=== PATIENT | female | born 2000 | race Caucasian/White ===

== ENCOUNTER 2021-04-30 22:32 | Emergency (ER) | payer OTHER, SELFPAY ==
[2021-04-30 22:36] VITALS: BP 135/70; PULSE 78; RESP 18; TEMP 36.3; O2SAT 100
--- NOTE | 2021-04-30 23:15 | ED.URI ---
HPI - URI/Sore Throat General Chief Complaint: Upper Respiratory Infection Stated Complaint: Exposed to COVID ,[place] Time Seen by Provider: 04/30/21 22:55 Source: patient Mode of arrival: ambulatory Limitations: no limitations History of Present Illness HPI Narrative: Patient is a 21 year old female who presents complaining of sore throat x 1-2 days. Patient is requesting Covid testing as she reports positive exposure last week. Patient has a history of Type I Diabetes and a total pancreatectomy. She denies fever, cough, shortness of breath or other complaints at this time. MD elicited complaint: sore throat Related Data Allergies Allergy/AdvReac Type Severity Reaction Status Date / Time No Known Allergies Allergy Verified 04/30/21 23:13 Review of Systems Review of Systems: Narrative: CONSTITUTIONAL: Denies fever, chills, or sweats. EYES: Denies visual changes, redness, or discharge. ENT: Denies rhinorrhea, congestion, reports sore throat CARDIOVASCULAR: Denies chest pain, palpitations, or edema. RESPIRATORY: Denies cough or dyspnea. GASTROINTESTINAL: Denies abdominal pain, nausea, vomiting, or diarrhea. GENITOURINARY: Denies dysuria or hematuria. SKIN: Denies rash or itching. MUSCULOSKELETAL: Denies back pain, joint pain, or myalgia. NEUROLOGIC: Denies headache, numbness, dizziness, or weakness. PSYCHIATRIC: Denies anxiety or depression. [facility] Past Medical History Medical History Diabetes type I Insulin pump in place Surgical History Surgical History History of pancreatectomy Social History Social History (Updated 04/30/21 @ 23:20 by LAKEISHA Malone) Smoking status: Never smoker Alcohol intake: never Substance use: never Exam Narrative: Exam Narrative: GENERAL: Well-appearing, well-nourished, and in no acute distress. HEAD: Normocephalic, atraumatic. EYES: EOMI. No redness or drainage. Conjunctiva are normal. ENT: Mucous membranes pink and moist. Throat with mild erythema, no edema or exudate. Uvula midline. NECK: AROM. Supple. No lymphadenopathy. CHEST: No respiratory distress. HEART: Regular rate and rhythm. EXTREMITIES: Normal range of motion. No edema. SKIN: Warm, dry, no rash. NEURO: No focal deficits. Alert and oriented x3. Gait steady. PSYCH: Normal affect. No signs of depression or anxiety. Course Vital Signs Vital signs: Vital Signs Temperature 36.3 C L 04/30/21 22:36 Pulse Rate 78 04/30/21 22:36 Respiratory Rate 18 04/30/21 22:36 Blood Pressure 135/70 04/30/21 22:36 Pulse Oximetry 100 04/30/21 22:36 Temperature 36.3 C L 04/30/21 22:36 Pulse Rate 78 04/30/21 22:36 Respiratory Rate 18 04/30/21 22:36 Blood Pressure 135/70 04/30/21 22:36 Pulse Oximetry 100 04/30/21 22:36 Reviewed-patient is informed that they may have pre-hypertension or hypertension based on a blood pressure reading. I recommend the patient call the primary care provider listed on their discharge instructions or a physician of their choice this week to arrange follow-up for further evaluation of possible pre-hypertension or hypertension. MDM - URI/Sore Throat MDM Narrative Medical decision making narrative: Covid testing performed at this time. Patient is aware of quarantine until results are received. Patient instructed on staying well-hydrated, use of Tylenol or ibuprofen for pain or fever. Patient is aware of red flags and when to return to the emergency department. Patient is stable for discharge to home with outpatient follow-up as needed. Differential Diagnosis Differential diagnosis: Likely upper respiratory infection, sinusitis, viral infection, bronchitis, influenza, pharyngitis and other (Covid) Critical Care Time Critical Care Time Critical Care Time: No Discharge Plan Discharge Clinical Impression: Encounter for screening laboratory testing f
[2021-05-01 19:11] LABS: SARS-CoV-2 RNA PCR Negative
== END 2021-04-30 23:43 | disposition home or self-care (01) ==
LOC: ANHED 23:24
PROVIDERS: Emergency Provider Nurse Practitioner; PCP Family Medicine
DX: J06.9 Acute upper respiratory infection, unspecified (principal); Z20.822 Contact with and (suspected) exposure to COVID-19; E10.9 Type 1 diabetes mellitus without complications; Z79.4 Long term (current) use of insulin; Z96.41 Presence of insulin pump (external) (internal); Z90.410 Acquired total absence of pancreas; R03.0 Elevated blood-pressure reading, without diagnosis of hypertension
CPT/HCPCS: 99283; C9803; U0003; U0005

== ENCOUNTER 2021-11-15 16:17 | Emergency (ER) | payer OTHER, SELFPAY ==
[2021-11-15 16:19] VITALS: BP 139/78; PULSE 98; RESP 16; TEMP 36.6; O2SAT 100
[2021-11-15] MEDS: CARBAMIDE PEROXIDE 6.5% OT SOLN 15 ML BTL 5 DROP EACH EAR (18:23)
--- NOTE | 2021-11-15 20:04 | ED.GENADULT ---
HPI - General Adult General Chief complaint: Ear Stated complaint: ears feel body maker Seen by Provider: 11/15/21 17:14 Source: patient Mode of arrival: ambulatory Limitations: no limitations History of Present Illness HPI narrative: Patient presents with chief complaint of cerumen impaction and discomfort to bilateral ears but left worse than right that has been going on for multiple weeks but has worsened over the past few days. Patient reports that she went to urgent care and they instructed her to come to the emergency department if they do not have the tools to clean her ears. Patient denies any drainage or bleeding from the ears. Patient denies any trauma to the ears. Patient denies any fever, chills or any other emergent symptoms. Related Data Allergies Allergy/AdvReac Type Severity Reaction Status Date / Time No Known Allergies Allergy Verified 04/30/21 23:13 Review of Systems Review of Systems: CONSTITUTIONAL: Denies fever, chills, or sweats. EYES: Denies visual changes, redness, or discharge. ENT: Reports otalgia denies rhinorrhea, congestion, sore throat CARDIOVASCULAR: Denies chest pain, palpitations, or edema. RESPIRATORY: Denies cough or dyspnea. GASTROINTESTINAL: Denies abdominal pain, nausea, vomiting, or diarrhea. GENITOURINARY: Denies dysuria or hematuria. SKIN: Denies rash or itching. MUSCULOSKELETAL: Denies back pain, joint pain, or myalgia. NEUROLOGIC: Denies headache, numbness, dizziness, or weakness. PSYCHIATRIC: Denies anxiety or depression. PMFSH Past Medical History Medical History Diabetes type I Insulin pump in place Surgical History Surgical History History of pancreatectomy Social History Social History (Updated 04/30/21 @ 23:20 by Michelle Mathews, LAKEISHA) Smoking status: Never smoker Alcohol intake: never Substance use: never Exam Narrative: GENERAL: Well-appearing, well-nourished, and in no acute distress. HEAD: Normocephalic, atraumatic. EYES: PERRLA and EOMI. ENT: Nares clear, no rhinorrhea or epistaxis. Mucous membranes moist. Oropharynx without tonsillar hypertrophy exudate or other lesions. Cerumen impaction bilaterally. Unable to visualize the tympanic membranes. NECK: Supple. No adenopathy or masses. No carotid bruits or JVD CHEST: Clear to auscultation. No respiratory distress. No wheezes rales or rhonchi HEART: Regular rate and rhythm. NEURO: No focal deficits. Alert and oriented x3. PSYCH: Normal mood and affect. Course Vital Signs Vital signs: Vital Signs Temperature 97.8 F 11/15/21 16:19 Pulse Rate 98 11/15/21 16:19 Respiratory Rate 16 11/15/21 16:19 Blood Pressure 139/78 11/15/21 16:19 Pulse Oximetry 100 11/15/21 16:19 Temperature 97.8 F 11/15/21 16:19 Pulse Rate 98 11/15/21 16:19 Respiratory Rate 16 11/15/21 16:19 Blood Pressure 139/78 11/15/21 16:19 Pulse Oximetry 100 11/15/21 16:19 Medical Decision Making MDM Narrative Medical decision making narrative: Copious amounts of earwax removed from bilateral ears. Patient reports improvement in discomfort with cerumen improvement. She also reports improvement in her hearing. There is some cerumen left however it is dry and requires additional drops for softening. Patient is ready to be discharged so patient has been given Debrox drops to use at home. Patient has been instructed on the appropriate way to use them and to not stick foreign objects into her ears as she risks ruptured her tympanic membrane. Patient has been instructed to follow-up with her primary care ear nose throat specialist for further evaluation and management if her symptoms worsen or she has any other concerns. There is no sign of infection. Vital Signs Vital Signs: Vital Signs Temperature 97.8 F 11/15/21 16:19 Pulse Rate 98 11/15/21 16:19 Respiratory Rate 16
== END 2021-11-15 20:05 | disposition home or self-care (01) ==
PROVIDERS: Emergency Provider Emergency Medicine; PCP Family Medicine
DX: H61.23 Impacted cerumen, bilateral (principal); E10.9 Type 1 diabetes mellitus without complications; Z79.4 Long term (current) use of insulin; Z96.41 Presence of insulin pump (external) (internal)
CPT/HCPCS: 69210; 99282; 99283; A9270

== ENCOUNTER 2021-12-09 22:52 | Observation (INO) | payer OTHER, SELFPAY ==
[2021-12-09] VITALS (7 sets, daily range): BP systolic 124–135; BP diastolic 81–93; PULSE 80–97; RESP 12–17; TEMP 36.7; O2SAT 99–100
--- NOTE | 2021-12-09 23:11 | ED.NAVMDI ---
HPI - Nausea/Vomiting/Diarrhea General Chief complaint: Nausea/Vomiting/Diarrhea Stated complaint: nausea Time Seen by Provider: 12/09/21 23:01 Source: patient History of Present Illness HPI Narrative: Patient presents with 1 day of nausea and vomiting she had a hard time controlling her symptoms so she came to the ER for evaluation. Patient also reports over the past 2 days she has felt like her heart has been racing. She has not noted any fevers or chills she not noted any diarrhea reports mild abdominal pain but attributed that to throwing up. Reports she has been drinking more water and urinating more but she has not checked her blood sugar in the past couple days as she is unable to afford test strips at this time. Related Data Allergies Allergy/AdvReac Type Severity Reaction Status Date / Time No Known Allergies Allergy Verified 04/30/21 23:13 Review of Systems Review of Systems: CONSTITUTIONAL: Denies fever, chills, or sweats. EYES: Denies visual changes, redness, or discharge. ENT: Denies rhinorrhea, congestion, sore throat, or otalgia. CARDIOVASCULAR: Denies chest pain, palpitations, or edema. RESPIRATORY: Denies cough or dyspnea. GASTROINTESTINAL: Denies abdominal pain, or diarrhea. GENITOURINARY: Denies dysuria or hematuria. SKIN: Denies rash or itching. MUSCULOSKELETAL: Denies back pain, joint pain, or myalgia. NEUROLOGIC: Denies headache, numbness, dizziness, or weakness. PSYCHIATRIC: Denies anxiety or depression. All systems reviewed & are unremarkable except as noted in HPI and below PMFSH Past Medical History Medical History (Updated 12/10/21 @ 01:17 by Ryne Stewart MD) Diabetes type I Insulin pump in place Surgical History Surgical History History of pancreatectomy Social History Social History Smoking status: Never smoker Alcohol intake: never Substance use: never Exam Narrative: GENERAL: Well-appearing, well-nourished, and in no acute distress. HEAD: Normocephalic, atraumatic. EYES: PERRLA and EOMI. ENT: Nares clear, no rhinorrhea or epistaxis. Mucous membranes moist. NECK: Supple. No masses. No JVD CHEST: Clear to auscultation. No respiratory distress. No wheezes rales or rhonchi HEART: Regular rate and rhythm. No murmur heard. Normal peripheral pulses. ABDOMEN: Soft, nontender, nondistended, normal active bowel sounds. EXTREMITIES: Normal range of motion. No edema. SKIN: Warm, dry, no rash. NEURO: No focal deficits. Alert and oriented x3. PSYCH: Normal mood and affect. Course Reevaluation(s) Reevaluation #1: Patient is resting comfortably results and plan reviewed with patient. Patient is comfortable with inpatient plan. Case cussed with hospitalist team and ICU hospitalist team will admit for further management Date: 12/10/21 Time: 00:59 Vital Signs Vital signs: Vital Signs Temperature 36.7 C 12/09/21 22:55 Pulse Rate 97 12/09/21 22:55 Respiratory Rate 16 12/09/21 22:55 Blood Pressure 129/81 12/09/21 22:55 Pulse Oximetry 100 12/09/21 22:55 Temperature 36.7 C 12/09/21 22:55 Pulse Rate 85 12/10/21 01:45 Respiratory Rate 19 12/10/21 01:45 Blood Pressure 124/92 H 12/10/21 00:12 Pulse Oximetry 99 12/10/21 01:45 MDM - Nausea/Vomiting/Diarrhea MDM Narrative Medical decision making narrative: Patient brought in for palpitations nausea and vomiting overall patient looks clinically well labs obtained and notable for hyperglycemia with acidosis and ketones concerning for DKA there is no anion gap. Due to her lab abnormalities and difficulty managing her diabetes as an outpatient patient would benefit from further management as an inpatient. Patient is comfortable with inpatient plan. Lab Data Result diagrams: 12/09/21 23:17 12/09/21 23:17 Labs: Lab Results 12/09/21 12/09/21
[2021-12-09] MEDS: SODIUM CHLORIDE 0.9% IV 1,000 ML 999 ML IV CONT (23:16)
[2021-12-09] MEDS: ONDANSETRON INJ 4 MG/2 ML VIAL IV PUSH (23:16)
[2021-12-09 23:22] LABS: Glucose Point of Care > 500 mg/dl (65-105)
[2021-12-09 23:27] LABS: Basophils Absolute Auto 0.1 K/mm3 (0.0-0.1); Basophils Percent Auto 0.5 % (0.2-1.2); Eosinophils Absolute Auto 0.1 K/mm3 (0-0.3); Eosinophils Percent Auto 0.8 % (0-4.4); Hematocrit 42.1 % (37.0-47.0); Hemoglobin 13.1 g/dL (12.0-15.0); Immature Granulocyte Absolute 0.03 K/mm3 (0.00-0.031); Immature Granulocyte Percent A 0.3 % (0-0.5); Lymphocytes Absolute Auto 4.87 K/mm3 (0.9-3.2); Lymphocytes Percent Auto 46.3 % (18.3-44.2); Mean Corpuscular HGB Conc 31.1 g/dl (32-36); Mean Corpuscular Hemoglobin 27.9 pg (26-34); Mean Corpuscular Volume 89.8 fl (80-100); Monocytes Absolute Auto 1.3 K/mm3 (0.1-0.6); Monocytes Percent Auto 12.7 % (2.6-8.5); Neutrophils Absolute Auto 4.2 K/mm3 (1.3-6.7); Neutrophils Percent Auto 39.4 % (45.5-73.1); Platelet Count Result 440 k/mm3 (150-375); Red Blood Count 4.69 M/mm3 (4.2-5.4); Red Cell Distribution Width 14.6 % (11.5-14.5); White Blood Count 10.5 K/mm3 (4.5-10.0)
[2021-12-09 23:39] LABS: Beta-Hydroxybutyrate/Acetoacetate 2.32 mmol/L (0.02-0.27)
[2021-12-09 23:51] LABS: Alveolar/Arterial O2 Gradient 15.6 mmHg; Fractional Inspired Oxygen 21 %; HCO3 ABG 14.4 mEq/l (22.0-26.0); Oxygen Content ABG 13.8 %vol (16.0-22.0); Oxygen Saturation ABG 97.5 % (95.0-100.0); Oxyhemoglobin 93.3 % THb (90.0-100.0); PCO2 ABG 27.1 mmHg (35.0-45.0); PO2 ABG 101.7 mmHg (80.0-100.0); PO2 FiO2 Ratio Arterial Blood 4.84 %; Total Hemoglobin 10.4 g/dL (12.0-18.0); pH ABG 7.343 (7.350-7.450)
[2021-12-09 23:53] LABS: Device ROOM AIR; Site Drawn RIGHT BRACHIAL
[2021-12-09 23:56] LABS: Add Urine Microscopic? YES; Appearance Urine Clear (Clear); Bilirubin Urine Negative (Negative); Blood Urine Negative (Negative); Color Urine Colorless (Yellow); Glucose Urine UA 3+ mg/dL (Negative); Ketones Urine 1+ mg/dL (Negative); Leukocyte Esterase Ur Trace LEU/UL (Negative); Nitrate Urine Negative (Negative); Protein Urine Negative (Negative); RBC Urine 0-2 /hpf (0-2); Specific Grav Ur 1.024 (1.001-1.035); Squamous Epithelial Cell Urine Moderate /hpf (Few); Urobilinogen Urine Negative mg/dL (<2.0)
[2021-12-10] VITALS (16 sets, daily range): BP systolic 100–124; BP diastolic 62–92; PULSE 66–94; RESP 14–21; TEMP 36.2–36.9; O2SAT 70–100; BMI 21.7
[2021-12-10] MEDS: SODIUM CHLORIDE 0.9% IV 1,000 ML 999 ML IV CONT ×2 (00:06)
[2021-12-10 00:10] LABS: Alanine Aminotransferase 21 U/L (4-35); Albumin Level 4.6 g/dL (3.5-5.1); Alkaline Phosphatase 144 U/L (38-126); Anion Gap 13 mmol/L (8-16); Aspartate Amino Transferase 33 U/L (14-36); Bilirubin,Total 0.7 mg/dL (0.2-1.3); Blood Urea Nitrogen 9 mg/dL (7-17); Calcium 9.3 mg/dL (8.4-10.2); Carbon Dioxide 19 mmol/L (22-30); Chloride 94 mmol/L (98-107); Estimated CRCL calculation 102 ml/min; Estimated Glomerular Filt Rate > 60; Glucose 717 mg/dL (65-110); Lipase 86 U/L (23-300); Potassium 4.9 mmol/L (3.4-5.0); Sodium 126 mmol/L (137-145)
[2021-12-10 00:14] LABS: Beta HCG Quantitative < 2.39 mIU/ML
--- NOTE | 2021-12-10 00:38 | PC.NURSE ---
BS 511
[2021-12-10 00:39] LABS: Glucose Point of Care > 500 mg/dl (65-105)
[2021-12-10] MEDS: INSULIN HUMAN REGULAR (*BKC) 100 UNITS/ML 6.4 UNITS IV PUSH (00:45)
--- NOTE | 2021-12-10 00:58 | PM.IMHP ---
H&P: HPI History of Present Illness Date/Time: 12/10/21 00:58 Chief Complaint: Nausea vomiting Narrative: 21 years old female with past medical history of diabetes mellitus on insulin pump patient complains of abdominal pain worsening gradually associated multiple times patient denies fever chills patient has episode of diarrhea patient has been having financial difficulties and was not able to check her blood sugar patient was found to have DKA admitted for further evaluation and treatment Review of Systems Review of Systems: All systems reviewed & are unremarkable except as noted in HPI and below PMFSH Past Medical History Medical History (Updated 12/10/21 @ 01:17 by Ryne Stewart MD) Diabetes type I Insulin pump in place Surgical History Surgical History History of pancreatectomy Social History Social History Smoking status: Never smoker Alcohol intake: never Substance use: never Meds Home Medications and Allergies Allergies Allergy/AdvReac Type Severity Reaction Status Date / Time No Known Allergies Allergy Verified 04/30/21 23:13 Vital Signs Vital Signs - 24 hr 12/09/21 22:55 12/09/21 23:13 12/09/21 23:15 Temperature 98.1 F Pulse Rate 97 86 90 Respiratory Rate 16 13 12 Blood Pressure 129/81 Pulse Oximetry 100 100 99 12/09/21 23:17 12/09/21 23:30 12/09/21 23:31 Temperature Pulse Rate 84 84 81 Respiratory Rate 17 13 12 Blood Pressure 135/93 H 124/92 H Pulse Oximetry 100 100 100 12/10/21 00:12 Temperature Pulse Rate 86 Respiratory Rate Blood Pressure 124/92 H Pulse Oximetry 98 Exam Narrative: GENERAL: Well-appearing, well-nourished, and in no acute distress. HEAD: Normocephalic, atraumatic. EYES: PERRLA and EOMI. ENT: Nares clear, no rhinorrhea or epistaxis. Mucous membranes moist. NECK: Supple. No masses. No JVD CHEST: Clear to auscultation. No respiratory distress. No wheezes rales or rhonchi HEART: Regular rate and rhythm. No murmur heard. Normal peripheral pulses. ABDOMEN: Soft, nontender, nondistended, normal active bowel sounds. EXTREMITIES: Normal range of motion. No edema. SKIN: Warm, dry, no rash. NEURO: No focal deficits. Alert and oriented x3. PSYCH: Normal mood and affect. H&P: Results Labs Labs: Short CBC 12/09/21 Range/Units 23:17 WBC 10.5 H (4.5-10.0) K/mm3 Hgb 13.1 (12.0-15.0) g/dL Hct 42.1 (37.0-47.0) % Plt Count 440 H (150-375) k/mm3 BMP 12/09/21 23:17 Sodium 126 L Potassium 4.9 Chloride 94 L Carbon Dioxide 19 L BUN 9 Creatinine 0.70 Glucose 717 H* Calcium 9.3 Liver Function 12/09/21 Range/Units 23:17 Total Bilirubin 0.7 (0.2-1.3) mg/dL AST 33 (14-36) U/L ALT 21 (4-35) U/L Alkaline Phosphatase 144 H (38-126) U/L Albumin 4.6 (3.5-5.1) g/dL Urine 12/09/21 Range/Units 23:20 Urine Color Colorless (Yellow) Urine Appearance Clear (Clear) Urine pH 5.0 (5.0-9.0) Ur Specific [place] 1.024 (1.001-1.035) Urine Protein Negative (Negative) mg/dL Urine Glucose (UA) 3+ H (Negative) mg/dL Assessment and Plan Assessment and plan (1) DKA (diabetic ketoacidosis): Code(s): E11.10 - Type 2 diabetes mellitus with ketoacidosis without coma Status: Acute Assessment and Plan: Started on DKA protocol Follow-up with family living educator Follow with Endocrine as outpatient Plan to resume insulin pump after dictation (2) Diabetes type I: Code(s): E10.9 - Type 1 diabetes mellitus without complications Status: Inactive Assessment and Plan: Patient on insulin pump counseling Additional Plan Abdominal pain most likely related to DKA pain control Abnormal UA patient denies dysuria frequency suprapubic pain continue to monitor no plan for antibiotics
[2021-12-10 01:24] LABS: Glucose Point of Care 466 mg/dl (65-105)
[2021-12-10] MEDS: PANTOPRAZOLE SODIUM IV 40 MG VIAL IV PUSH ×3 (01:33→17:33)
[2021-12-10] MEDS: SODIUM CHLORIDE 0.9% IV 1,000 ML 150 ML IV CONT (01:34)
[2021-12-10 01:45] LABS: SARS-CoV-2 RNA PCR Negative
[2021-12-10] MEDS: INSULIN HUMAN REGULAR (*BKC) 100 UNITS in SODIUM CHLORIDE 0.9% IV 99 ML 5.24 UNITS IV CONT (01:48)
[2021-12-10 01:55] LABS: Glucose Point of Care 322 mg/dl (65-105)
[2021-12-10 01:58] LABS: Hemoglobin A1C 9.2 % (<5.7)
[2021-12-10 02:22] LABS: Anion Gap 12 mmol/L (8-16); Blood Urea Nitrogen 7 mg/dL (7-17); Calcium 7.7 mg/dL (8.4-10.2); Carbon Dioxide 16 mmol/L (22-30); Chloride 106 mmol/L (98-107); Estimated CRCL calculation 117 ml/min; Estimated Glomerular Filt Rate > 60; Glucose 440 mg/dL (65-110); Lipase 57 U/L (23-300); Magnesium 1.5 mg/dL (1.6-2.3); Phosphorus 3.3 mg/dL (2.5-4.5); Sodium 134 mmol/L (137-145)
[2021-12-10 03:04] LABS: Glucose Point of Care 186 mg/dl (65-105)
--- NOTE | 2021-12-10 03:40 | ADMGEN ---
This patient, Liz Feliz, was admitted to Intensive Care Unit-11. Patient/family oriented to hospital policies and general routines including ID bracelet, bed and alarms, visiting hours, pain management, procedures, bathroom and other care routines, personal items, smoking policy, room service/diet, and visiting hours. Information on how to activate the Rapid Response Team has been discussed. Patient/Family are encouraged to report perceived risks to care and to ask questions if they do not understand what they are told or what they should do.
[2021-12-10 03:57] LABS: Glucose Point of Care 89 mg/dl (65-105)
[2021-12-10] MEDS: KCL 20 MEQ/D5/0.45% SOD CHL 1,000 ML 150 ML IV CONT (03:58)
[2021-12-10 04:53] LABS: Glucose Point of Care 50 mg/dl (65-105)
[2021-12-10 05:19] LABS: Anion Gap 7 mmol/L (8-16); Blood Urea Nitrogen 6 mg/dL (7-17); Calcium 7.7 mg/dL (8.4-10.2); Carbon Dioxide 20 mmol/L (22-30); Chloride 110 mmol/L (98-107); Estimated CRCL calculation 138 ml/min; Estimated Glomerular Filt Rate > 60; Glucose 69 mg/dL (65-110); Lipase 31 U/L (23-300); Potassium 2.9 mmol/L (3.4-5.0); Sodium 137 mmol/L (137-145)
[2021-12-10 06:30] LABS: Glucose Point of Care 190 mg/dl (65-105)
[2021-12-10 06:30] LABS: Glucose Point of Care 167 mg/dl (65-105)
[2021-12-10 06:56] LABS: Glucose Point of Care 185 mg/dl (65-105)
--- NOTE | 2021-12-10 07:38 | ADMGEN ---
This patient, Liz Feliz, was admitted to Intensive Care Unit-11 at approximately 4 am. Patient/family oriented to hospital policies and general routines including ID bracelet, bed and alarms, visiting hours, pain management, procedures, bathroom and other care routines, personal items, smoking policy, room service/diet, and visiting hours. Information on how to activate the Rapid Response Team has been discussed. Patient/Family are encouraged to report perceived risks to care and to ask questions if they do not understand what they are told or what they should do.
[2021-12-10] MEDS: INSULIN ASPART (*BKC) 100 UNITS/ML SUB-Q ×3 (09:30→17:32)
[2021-12-10] MEDS: ENOXAPARIN 40 MG/0.4 ML SYRINGE SUB-Q (09:34)
[2021-12-10] MEDS: INSULIN GLARGINE (*BKC) 100 UNITS/ML 20 UNITS SUB-Q (09:34)
[2021-12-10 09:40] LABS: Anion Gap 7 mmol/L (8-16); Blood Urea Nitrogen 6 mg/dL (7-17); Calcium 7.5 mg/dL (8.4-10.2); Carbon Dioxide 19 mmol/L (22-30); Chloride 108 mmol/L (98-107); Estimated CRCL calculation 168 ml/min; Estimated Glomerular Filt Rate > 60; Glucose 205 mg/dL (65-110); Potassium 3.9 mmol/L (3.4-5.0); Sodium 134 mmol/L (137-145)
[2021-12-10 09:42] LABS: Glucose Point of Care 202 mg/dl (65-105)
--- NOTE | 2021-12-10 11:47 | PCDIET ---
Dietitian consult for DKA. See Nutritional Teaching Interventions. Thank you for the consult.
[2021-12-10 12:06] LABS: Glucose Point of Care 373 mg/dl (65-105)
[2021-12-10 13:14] LABS: Anion Gap 6 mmol/L (8-16); Blood Urea Nitrogen 6 mg/dL (7-17); Calcium 7.8 mg/dL (8.4-10.2); Carbon Dioxide 22 mmol/L (22-30); Chloride 104 mmol/L (98-107); Estimated CRCL calculation 138 ml/min; Estimated Glomerular Filt Rate > 60; Glucose 300 mg/dL (65-110); Potassium 3.9 mmol/L (3.4-5.0); Sodium 132 mmol/L (137-145)
--- NOTE | 2021-12-10 14:41 | PC.NURSE ---
This patient, Liz Feliz, was received from ICU on 12/10/21 at 1405. Patient/family oriented to unit policies and routines
--- NOTE | 2021-12-10 15:04 | PC.NURSE ---
Report given to YAKOV Cardozo with [address] [place] [address] at 1358. All questions answered and plan of care reviewed. Patient to go to room 251.
[2021-12-10 16:53] LABS: Glucose Point of Care 260 mg/dl (65-105)
--- NOTE | 2021-12-10 17:08 | WPDCNINT ---
Assessment and Plan Assessment and plan (1) DKA (diabetic ketoacidosis): Qualifiers: Diabetes mellitus complication detail: without coma Diabetes mellitus type: type 1 Qualified Code(s): E10.10 - Type 1 diabetes mellitus with ketoacidosis without coma Code(s): E11.10 - Type 2 diabetes mellitus with ketoacidosis without coma Status: Acute Assessment and Plan: Patient presented the ED with complains of abdominal pain, nausea, vomiting, polydipsia, polyuria -blood sugars were 717 with positive beta hydroxybutyrate and positive ketones in the urine. -patient received 3 L of IV fluids ER and was started on insulin infusion -overnight patient was hypoglycemic with blood sugars in the 50s, insulin infusion was discontinued -this morning patient was placed on long-acting insulin sliding scale insulin -carb consistent diabetic diet -clinical educator and dietitian have been consulted Additional Plan Discussed with patient updated with her condition and plan of care, I answered all questions Code status: Full code Critical care time spent: 41 minute This dictation may have been done utilizing a voice recognition system. Attempts have been made to correct errors. However, there may be uncorrected grammatical, spelling, and recognition errors present. Due to a high probability of clinically significant, life threatening deterioration, the patient required my highest level of preparedness to intervene emergently and I personally spent this critical care time directly and personally managing the patient. This critical care time included obtaining a history; examining the patient; pulse oximetry; ordering and review of studies; arranging urgent treatment with development of a management plan; evaluation of patient's response to treatment; frequent reassessment; and discussions with other providers. It was exclusive of separately billable procedures and treating other patients and teaching time. Please see Assessment and Plan section and the rest of the note for further information on patient assessment and treatment [place] Consult Note Consult date: 12/10/21 Time Seen: 07:08 Reason for consult: Hyperglycemia, diabetic ketoacidosis HPI: Liz Feliz is a 21 year old female with past medical history of diabetes on insulin pump, history of pancreatectomy the age of 14, presented the ED with complaints of abdominal pain nausea, vomiting, polyuria, poly dip see a. She has not checked her blood sugars for the past few days as she is unable to afford test strips and insurance does not cover it. In the ED patient was found to have a blood sugar of 717, non-anion gap metabolic acidosis, elevated beta hydroxybutyrate, positive ketones in the urine, patient was given 3 L IV fluid bolus and started on insulin infusion. Patient was transferred to the ICU for further management 12/10/2021: Patient seen and examined the ICU, states he feels much better, denies any abdominal pain, nausea, vomiting, chest pain, shortness with, diarrhea. Patient seen eating her breakfast. Has been off are insulin infusion as she was hypoglycemic with blood sugars in the 50s. Patient was transition to long-acting insulin and sliding scale insulin this morning Review of Systems Review of Systems: All systems reviewed & are unremarkable except as noted in HPI and below PMFSH Past Medical History Medical History (Updated 12/10/21 @ 01:17 by Ryne Stewart MD) Diabetes type I Insulin pump in place Surgical History Surgical History History of pancreatectomy Family History Family History (Updated 12/10/21 @ 06:03 by Supa Bruce RN) Other Unknown family medical history Social History Social History Smoking status: Never smoker Second hand tobacco smoke exposure: No Alcohol intake: never Substanc
[2021-12-10 19:16] LABS: Anion Gap 5 mmol/L (8-16); Blood Urea Nitrogen 5 mg/dL (7-17); Calcium 8.2 mg/dL (8.4-10.2); Carbon Dioxide 24 mmol/L (22-30); Chloride 101 mmol/L (98-107); Estimated CRCL calculation 117 ml/min; Estimated Glomerular Filt Rate > 60; Glucose 395 mg/dL (65-110); Potassium 4.3 mmol/L (3.4-5.0); Sodium 130 mmol/L (137-145)
[2021-12-10 21:06] LABS: Glucose Point of Care 157 mg/dl (65-105)
[2021-12-10 21:48] LABS: Anion Gap 7 mmol/L (8-16); Blood Urea Nitrogen 4 mg/dL (7-17); Calcium 8.4 mg/dL (8.4-10.2); Carbon Dioxide 23 mmol/L (22-30); Chloride 107 mmol/L (98-107); Estimated CRCL calculation 138 ml/min; Estimated Glomerular Filt Rate > 60; Glucose 97 mg/dL (65-110); Potassium 3.6 mmol/L (3.4-5.0); Sodium 137 mmol/L (137-145)
[2021-12-11 04:04] VITALS: BP 90/61; PULSE 74; RESP 16; TEMP 36; O2SAT 98
[2021-12-11 07:38] LABS: Glucose Point of Care 81 mg/dl (65-105)
[2021-12-11] MEDS: ACETAMINOPHEN 325 MG TABLET 650 MG PO (09:30)
[2021-12-11] MEDS: ENOXAPARIN 40 MG/0.4 ML SYRINGE SUB-Q (09:31)
[2021-12-11] MEDS: INSULIN GLARGINE (*BKC) 100 UNITS/ML 20 UNITS SUB-Q (09:31)
[2021-12-11] MEDS: PANTOPRAZOLE SODIUM IV 40 MG VIAL IV PUSH (09:31)
[2021-12-11 11:35] LABS: Glucose Point of Care 157 mg/dl (65-105)
[2021-12-11 12:55] VITALS: BMI 21.3
--- NOTE | 2021-12-11 13:20 | PM.DS ---
DS: Admitting Diagnosis Discharge Date 12/11/21 Admitting Diagnosis (1) DKA (diabetic ketoacidosis): (2) Diabetes type I: DS: Discharge Diagnosis Discharge Diagnosis (1) DKA (diabetic ketoacidosis): Qualifiers: Diabetes mellitus complication detail: without coma Diabetes mellitus type: type 1 Qualified Code(s): E10.10 - Type 1 diabetes mellitus with ketoacidosis without coma Code(s): E11.10 - Type 2 diabetes mellitus with ketoacidosis without coma Status: Acute Assessment and Plan: Patient presented the ED with complains of abdominal pain, nausea, vomiting, polydipsia, polyuria -blood sugars were 717 with positive beta hydroxybutyrate and positive ketones in the urine. -patient received 3 L of IV fluids ER and was started on insulin infusion -overnight patient was hypoglycemic with blood sugars in the 50s, insulin infusion was discontinued -this morning patient was placed on long-acting insulin sliding scale insulin -carb consistent diabetic diet -peer educator and dietitian have been consulted DS: Summary Hospital Course Reason for hospitalization: Nausea and vomiting. Hospital Course: Please refer to admission H and P. Briefly,this is a 21 years old female with past medical history of insulino-dependent diabetes mellitus on insulin pump patient complains of abdominal pain worsening gradually associated multiple times patient denies fever chills patient has episode of diarrhea patient has been having financial difficulties and was not able to check her blood sugar patient was found to have DKA admitted for further evaluation and treatment. (1) DKA (diabetic ketoacidosis): Patient presented the ED with complains of abdominal pain, nausea, vomiting, polydipsia, polyuria -blood sugars were 717 with positive beta hydroxybutyrate and positive ketones in the urine. -patient received 3 L of IV fluids ER and was started on insulin infusion -overnight patient was hypoglycemic with blood sugars in the 50s, insulin infusion was discontinued -this morning patient was placed on long-acting insulin sliding scale insulin -carb consistent diabetic diet -peer educator and dietitian have been consulted; Patient seen and examined the on the med-surg unit; she states he feels much better, denies any abdominal pain, nausea, vomiting, chest pain, shortness with, diarrhea. Patient seen eating her breakfast. Has been off are insulin infusion as she was normopoglycemic with blood sugars in the 80s. Patient was transition to long-acting insulin and sliding scale insulin this morning. She was discharged with supplies to resume her insulin pump. Patient was explained her management, and discharge plan and was in agreement with her management. She was discharged home to the care of her primary care provider. Status at Discharge Functional status at discharge: independent ambulation Overall status at discharge: patient is back to baseline Time Spent with Patient Time attestation: Total time spent providing and/or coordinating discharge services:32 min. Time spent: Greater than 30 minutes Exam Narrative: General: Patient is sitting up in bed in no acute distress HEENT: Pupils equal and reactive, sclera is clear Neck: Supple with no lymphadenopathy Respiratory: Clear to auscultation bilaterally, no wheezing Cardiac: S1-S2 normal, regular rate and rhythm Abdomen: Soft, nontender, nondistended, positive bowel sounds Extremities: No edema, palpable pedal pulses Neuro: Patient is nonfocal Skin: Dry and intact Psych: Normal affect and mentation DS: Data Data Completed and Pending Labs on day of discharge: Labs from last 24 hours 12/11/21 12/11/21 12/10/21 11:29 07:28 21:20 Sodium 137 Potassium 3.6 Chloride 107 Carbon Dioxide 23 Anion Gap 7 L BUN 4 L Creatinine 0.50 L Estim Creat Clear Calc 138 Estimated GFR > 60 Glucose 97 POC Capillary Glucose 157 H 81 Calcium
[2021-12-11 14:00] VITALS: BP 95/63; PULSE 70; RESP 18; TEMP 36.8; O2SAT 99
== END 2021-12-11 15:14 | disposition home or self-care (01) ==
LOC: ANHED 12-10 01:01 → ANHICU 12-10 11:47 → ANH2MED 12-11 10:22 → ANHICU 12-15 11:55
PROVIDERS: Admitting Provider Internal Medicine; Emergency Provider Emergency Medicine; PCP Family Medicine; Visit Provider Internal Medicine
DX: E10.10 Type 1 diabetes mellitus with ketoacidosis without coma (principal); R11.2 Nausea with vomiting, unspecified; R19.7 Diarrhea, unspecified; Z96.41 Presence of insulin pump (external) (internal); Z79.4 Long term (current) use of insulin; Z90.411 Acquired partial absence of pancreas; Z20.822 Contact with and (suspected) exposure to COVID-19
CPT/HCPCS: 36415; 36600; 80048; 80053; 81001; 81025; 82010; 82805; 82948; 83036; 83690; 83735; 84100; 84702; 85025; 96361; 96365; 96366; 96367; 96372; 96374; 96375; 96376; 99285; A9270; C9113; C9803; G0378; J1650; J1815; J2405; J3480; J7030; U0003; U0005

== ENCOUNTER 2022-08-09 19:46 | Emergency (ER) | payer OTHER, SELFPAY ==
--- NOTE | ~2022-08-09 | XR_ITS ---
XR chest 2V DATE: 08/09/2022 20:39 INDICATION: Tachycardia and vomiting TECHNIQUE: PA and lateral views COMPARISON: None FINDINGS: Multiple air-fluid levels are noted in the bowel in the upper abdomen. Normal heart size. No hilar or mediastinal enlargement. No pulmonary infiltrate or consolidation, ple ural effusion or pulmonary vascular congestion or pneumothorax. Electronic device overlies the anterior mid chest. Included skeletal structures are unremarkable. IMPRESSION: Bowel air-fluid levels, upper abdomen No active cardiopulmonary disease Reviewed, dictated and finalized at location A.
--- NOTE | 2022-08-09 19:57 | ECG_ITS ---
Measurements Intervals [place] Rate: 112 P: 52 NM: 142 QRS: 6 QRSD: 97 T: 58 QT: 342 QTc: 468 Interpretive Statements SINUS TACHYCARDIA NO PREVIOUS ECG AVAILABLE FOR COMPARISON Electronically Signed On 08-10-2022 16:01:40 CDT by Jose De Jesus Connell M.D.
[2022-08-09 19:58] VITALS: BP 124/89; PULSE 118; RESP 18; TEMP 36.6; O2SAT 100
[2022-08-09 20:11] LABS: Hematocrit 31.8 % (37.0-47.0); Hemoglobin 9.6 g/dL (12.0-15.0); Mean Corpuscular HGB Conc 30.2 g/dl (32-36); Mean Corpuscular Hemoglobin 23.5 pg (26-34); Mean Corpuscular Volume 77.8 fl (80-100); Mean Platelet Volume 9.8 fl (7.4-10.4); Platelet Count Result 478 k/mm3 (150-375); Red Blood Count 4.09 M/mm3 (4.2-5.4); Red Cell Distribution Width 17.1 % (11.5-14.5); White Blood Count 9.1 K/mm3 (4.5-10.0)
[2022-08-09 20:21] LABS: Alanine Aminotransferase 25 U/L (6-35); Albumin Level 3.8 g/dL (3.5-5.1); Alkaline Phosphatase 90 U/L (38-126); Anion Gap 15 mmol/L (8-16); Aspartate Amino Transferase 33 U/L (14-36); Bilirubin,Total 0.2 mg/dL (0.2-1.3); Blood Urea Nitrogen 15 mg/dL (7-17); Carbon Dioxide 18 mmol/L (22-30); Chloride 107 mmol/L (98-107); Estimated CRCL calculation 116 ml/min; Estimated Glomerular Filt Rate > 60; Glucose 198 mg/dL (65-110); Lipase 35 U/L (23-300); Potassium 3.9 mmol/L (3.4-5.0); Sodium 140 mmol/L (137-145)
[2022-08-09 20:32] LABS: Troponin I < 0.012 ng/mL (0.000-0.034)
[2022-08-09 20:47] LABS: Anisocytosis 2+ (NORMAL); Band Neutrophils Percent 3 % (0-6); Basophils Absolute Manual 0.09 K/mm3 (0.0-0.1); Basophils Percent Manual 1 % (0-1); Eosinophils Absolute Manual 0.36 K/mm3 (0.02-0.5); Eosinophils Percent Manual 4 % (0-4); Lymphocytes Absolute Manual 1.82 K/mm3 (1.1-4.5); Macrocytosis 1+ (NORMAL); Microcytosis 1+ (NORMAL); Monocytes Absolute Manual 1.36 K/mm3 (0.1-0.90); Monocytes Percent Manual 15 % (3-9); Neutrophils Absolute Manual 5.46 K/mm3 (1.7-7.2); Neutrophils Percent Manual 57 % (46-73); Platelet Estimate Adequate (Adequate); Poikilocytosis 3+ (NORMAL); Total Cells Counted 100
[2022-08-09 20:48] LABS: Atypical Lymphocytes Present; Burr Cells 1+ (NORMAL); Crenated RBC 3+ (NORMAL); Ovalocytes 2+ (NORMAL); Schistocytes 2+ (NORMAL); Smudge Cells FEW; Spherocytes 1+ (NORMAL); Tear Drop Cells 1+ (NORMAL)
[2022-08-09 20:49] LABS: Acanthocytes 3+ (NORMAL)
--- NOTE | 2022-08-09 21:34 | PC.NURSE ---
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 Reports she is currently wearing a Holter monitor for symptoms. Echocardiogram scheduled for Tuesday.
[2022-08-09 21:36] VITALS: BP 127/93; PULSE 92; RESP 22; O2SAT 98
[2022-08-09 22:24] VITALS: BP 114/77; PULSE 81
[2022-08-09 22:25] VITALS: BP 121/89; PULSE 83
[2022-08-09 22:26] VITALS: BP 131/95; PULSE 93
[2022-08-09] MEDS: SODIUM CHLORIDE 0.9% IV 1,000 ML 999 ML IV CONT (22:34)
[2022-08-09 22:51] LABS: Magnesium 1.6 mg/dL (1.6-2.3)
[2022-08-09 23:16] VITALS: BP 115/85; PULSE 75; RESP 17; O2SAT 98
--- NOTE | 2022-08-09 23:37 | ED.GENADULT ---
HPI - General Adult General Chief complaint: Arrhythmia/Palpitations Stated complaint: heart rate racing intermittently for few days; armida Time Seen by Provider: 08/09/22 21:49 History of Present Illness HPI narrative: Patient is a 22-year-old female who presents the emergency department with chief complaint of palpitations. The patient reports that over the last several days she has been having episodes where her heart is beating fast. The patient states that she is currently wearing a event monitor and reports that her blood sugars have been running in the normal range. The patient states that she has not had any real chest pain denies diaphoresis denies vomiting or diarrhea the patient does report that she has had a fair amount of urination patient states that she is scheduled to see cardiology on Tuesday and next scheduled for an echo. Related Data Home Medications Medication Instructions Recorded Confirmed Admelog U-100 Insulin lispro 35 - 45 units subcut (via wearable 12/10/21 12/10/21 injectr) DAILY Vitamin D3 1 tablet PO 2XW 12/10/21 12/10/21 vitamin A 1 tablet PO DAILY 12/10/21 12/10/21 Allergies Allergy/AdvReac Type Severity Reaction Status Date / Time No Known Allergies Allergy Verified 08/09/22 21:38 Review of Systems Review of Systems: A 10 system review of systems was completed on the patient and is negative except for what is stated in the HPI. Nursing and ancillary documentation was reviewed. PMFSH Past Medical History Medical History Diabetes type I Insulin pump in place Surgical History Surgical History History of pancreatectomy Family History Family History Other Unknown family medical history Social History Social History Smoking status: Never smoker Second hand tobacco smoke exposure: No Alcohol intake: never Substance use: never Spiritual care concerns: No Exam Narrative: GENERAL: Well-appearing, well-nourished, and in no acute distress. HEAD: Normocephalic, atraumatic. EYES: PERRLA and EOMI. ENT: Nares clear, no rhinorrhea or epistaxis. Mucous membranes moist. NECK: Supple. CHEST: Clear to auscultation. No respiratory distress. HEART: Regular rate and rhythm. No murmur heard. Normal peripheral pulses. ABDOMEN: Soft, nontender, nondistended, normal active bowel sounds. EXTREMITIES: Normal range of motion. No edema. SKIN: Warm, dry, no rash. NEURO: No focal deficits. Alert and oriented x3. PSYCH: Normal mood and affect. Course Course Emergency Course: EKG is sinus tachycardia rate of [address] elevation or ST depression. Vital Signs Vital signs: Vital Signs Temperature 36.6 C 08/09/22 19:58 Pulse Rate 118 H 08/09/22 19:58 Respiratory Rate 18 08/09/22 19:58 Blood Pressure 124/89 08/09/22 19:58 Pulse Oximetry 100 08/09/22 19:58 Oxygen Delivery Room Air 08/09/22 19:58 Temperature 36.6 C 08/09/22 19:58 Pulse Rate 75 08/09/22 23:16 Respiratory Rate 17 08/09/22 23:16 Blood Pressure 115/85 08/09/22 23:16 Pulse Oximetry 98 08/09/22 23:16 Oxygen Delivery Room Air 08/09/22 19:58 Medical Decision Making Vital Signs Vital Signs: Vital Signs Temperature 36.6 C 08/09/22 19:58 Pulse Rate 118 H 08/09/22 19:58 Respiratory Rate 18 08/09/22 19:58 Blood Pressure 124/89 08/09/22 19:58 Pulse Oximetry 100 08/09/22 19:58 Oxygen Delivery Room Air 08/09/22 19:58 Temperature 36.6 C 08/09/22 19:58 Pulse Rate 75 08/09/22 23:16 Respiratory Rate 17 08/09/22 23:16 Blood Pressure 115/85 08/09/22 23:16 Pulse Oximetry 98 08/09/22 23:16 Oxygen Delivery Room Air 08/09/22 19:58 Lab Data Result diagrams: 08/09/22 20:06 08/09
[2022-08-10 00:07] VITALS: BP 112/82; PULSE 74; RESP 16; O2SAT 98
== END 2022-08-10 00:08 | disposition home or self-care (01) ==
PROVIDERS: Emergency Provider Emergency Medicine; PCP Family Medicine
DX: R00.2 Palpitations (principal); E10.8 Type 1 diabetes mellitus with unspecified complications; Z96.41 Presence of insulin pump (external) (internal); Z79.4 Long term (current) use of insulin; R00.0 Tachycardia, unspecified
CPT/HCPCS: 36415; 71046; 80053; 83690; 83735; 84484; 85025; 93005; 96360; 99284; J7030

== ENCOUNTER 2022-10-03 12:41 | Emergency (ER) | payer OTHER, SELFPAY ==
[2022-10-03 13:23] VITALS: BP 122/91; PULSE 101; RESP 16; TEMP 37.1; O2SAT 100
--- NOTE | 2022-10-03 14:13 | ED.ABDPAIN ---
HPI - Abdominal Pain General Chief Complaint: Abdominal Pain Stated Complaint: NAUSEA/ABD PAIN Time Seen by Provider: 10/03/22 13:30 Source: patient Mode of arrival: ambulatory Limitations: no limitations History of Present Illness HPI narrative: Liz is a 22-year-old female patient presenting to clinic today with complaints of nausea and right upper quadrant/midepigastric abdominal pain that started this morning. She reports that her pain is currently a 3 to 4/10. States the pain is worse after eating. She has had a history of pancreatectomy, splenectomy, and appendectomy. Last menstrual period was 3 weeks ago. She denies any urinary symptoms. She denies any vaginal discharge. She denies any fever or chills. Related Data Home Medications Medication Instructions Recorded Confirmed cholecalciferol (vitamin D3) 1,250 50,000 unit PO WEEKLY 10/03/22 10/03/22 mcg (50,000 unit) capsule insulin lispro 100 unit/mL 100 sliding scale dose subcut 10/03/22 10/03/22 subcutaneous solution USEASDIRECTD [id number] 3 cap PO TIDWMEAL 10/03/22 10/03/22 36,000-114,000-180,000 unit capsule,delay rel (Creon) vitamin A 10,000 unit capsule 10,000 unit PO DAILY 10/03/22 10/03/22 Allergies Allergy/AdvReac Type Severity Reaction Status Date / Time No Known Allergies Allergy Verified 10/03/22 13:13 Review of Systems Review of Systems: Pertinent positives per HPI. Patient denies any fever, chills, rash, headache, visual changes, dizziness, cough, runny nose, sore throat, shortness of breath, chest pain, palpitations, nausea, vomiting, diarrhea, constipation, abdominal pain, or any urinary issues. [facility] Past Medical History Medical History Diabetes type I Insulin pump in place Surgical History Surgical History History of pancreatectomy Family History Family History Other Unknown family medical history Social History Social History (Reviewed 10/03/22 @ 14:17 by ELIZABETH Neumann Smoking status: Never smoker Second hand tobacco smoke exposure: No Alcohol intake: never Substance use: never Spiritual care concerns: No Comments At the time of my signature, I reviewed and agree with the nursing past medical, surgical, social, and family history. There is no relevant family history pertinent to the patient complaint. Exam Narrative: General: Well-developed, well nourished, in no apparent distress. Head: Normocephalic, atraumatic. Cardio: Regular rate and rhythm, s1 and s2 normal, no murmur appreciated. Resp: Clear to auscultation bilaterally, no rhonchi, rales, wheezing or rubs. Abdomen: Soft, pliable, exquisite tenderness to palpation over the right upper quadrant and midepigastrium, bowel sounds present in all quadrants, no organomegly, no CVAT tenderness. Course Course Emergency Course: Portions of this record may have been created with voice recognition software. Level of Care: Express Care Visit Vital Signs Vital signs: Vital Signs Temperature 37.1 C 10/03/22 13:23 Pulse Rate 101 H 10/03/22 13:23 Respiratory Rate 16 10/03/22 13:23 Blood Pressure 122/91 H 10/03/22 13:23 Pulse Oximetry 100 10/03/22 13:23 Temperature 37.1 C 10/03/22 13:23 Pulse Rate 101 H 10/03/22 13:23 Respiratory Rate 16 10/03/22 13:23 Blood Pressure 122/91 H 10/03/22 13:23 Pulse Oximetry 100 10/03/22 13:23 Vital signs reviewed Transfer Transfered to: [facility] Transportation: Other (Private car) Transfer rationale: Right upper quadrant and midepigastric abdominal pain Accepting physician: No physician name was provided as accepting physician Transfer comments: Spoke with Meng RN- charge nurse at [facility] and they accept patient for transfer MDM - Abdomin
== END 2022-10-03 13:42 | disposition short-term general hospital (02) ==
PROVIDERS: Emergency Provider Nurse Practitioner Family
DX: R10.11 Right upper quadrant pain (principal); R10.13 Epigastric pain; Z90.410 Acquired total absence of pancreas; Z90.81 Acquired absence of spleen; Z90.89 Acquired absence of other organs; E10.9 Type 1 diabetes mellitus without complications
CPT/HCPCS: 99212; G0463

== ENCOUNTER 2022-10-26 16:04 | Emergency (ER) | payer OTHER, SELFPAY ==
--- NOTE | ~2022-10-26 | CT_ITS ---
EXAMINATION: CT abdomen pelvis w con DATE: 10/26/2022 19:24 INDICATION: epigastric pain TECHNIQUE: Computed tomography (CT) of the abdomen and pelvis was performed with 100 mL Omnipaque-350 intravenous contrast. Automated exposure control and iterative reconstruction technique were employe d. The dose-length product was 272.92 mGy-cm. COMPARISON: None. FINDINGS: Lower thorax: Unremarkable Liver: Normal. Biliary/Gallbladder: Gallbladder is not visualized and may be surgically absent. Mild periportal lindsay a. Pneumobilia Pancreas: Surgically absent. Spleen: Surgically absent. Adrenals:No mass. Kidneys: Bilateral simple cysts. No obstructing calcification or hydronephrosis. GI tract: Prior gastric surgery. Distal esophageal and gastric wall edema No small or large bowel dil ation. Likely status post appendectomy. Mesentery/Peritoneum: Upper mesenteric edema. Scattered enlarged mesenteric lymph nodes Retroperitoneum: Para-aortic lymphadenopathy. Pelvis: Pelvic organs are within normal limits. Soft Tissues: Soft tissues and body wall unremarkable. Bones: No acute osseous finding. IMPRESSION: Esophagitis/gastritis. Mild upper abdominal mesenteric edema, a nonspecific finding. Nonspecific deneen portal edema. Pneumobilia, likely related to prior surgeries. Mesenteric and periaortic lymphadenopat hy, consider evaluation for lymphoproliferative disorder. Reviewed, dictated and finalized at location K. [employer] IMPRESSION: Esophagitis/gastritis. Mild upper abdominal mesenteric edema, a nonspecific fin ding. Nonspecific periportal edema. Pneumobilia, likely related to prior surger ies. Mesenteric and periaortic lymphadenopathy, consider evaluation for lymphop roliferative disorder.
[2022-10-26 17:16] VITALS: BP 122/79; PULSE 87; RESP 18; TEMP 36.5; O2SAT 100
--- NOTE | 2022-10-26 18:09 | ED.ABDPAIN ---
HPI - Abdominal Pain General Chief Complaint: Abdominal Pain Stated Complaint: ABD PAIN Time Seen by Provider: 10/26/22 17:48 Source: patient Mode of arrival: ambulatory Limitations: no limitations History of Present Illness HPI narrative: This is a 22 year old female that presents to the ER for epigastric abdominal pain. Reports a sharp upper abdominal pain ongoing since 10 this morning. Reports the pain feels like when she used to have pancreatitis. 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 Reports she had so many episodes of pancreatitis by age 14 that she has had a pancreatectomy. The pain is associated with nausea. Reports she was seen in the ER at an outside facility for similar symptoms a couple of weeks ago without a cause found. Denies fever, vomiting, hematochezia, melena, dysuria or diarrhea. Related Data Home Medications Medication Instructions Recorded Confirmed cholecalciferol (vitamin D3) 1,250 50,000 unit PO WEEKLY 10/03/22 10/03/22 mcg (50,000 unit) capsule insulin lispro 100 unit/mL 100 sliding scale dose subcut 10/03/22 10/03/22 subcutaneous solution USEASDIRECTD [id number] 3 cap PO TIDWMEAL 10/03/22 10/03/22 36,000-114,000-180,000 unit capsule,delay rel (Creon) vitamin A 10,000 unit capsule 10,000 unit PO DAILY 10/03/22 10/03/22 Allergies Allergy/AdvReac Type Severity Reaction Status Date / Time No Known Allergies Allergy Verified 10/03/22 13:13 Review of Systems Review of Systems: CONSTITUTIONAL: Denies fever GASTROINTESTINAL: Reports abdominal pain, nausea. Denies vomiting, or diarrhea. GENITOURINARY: Denies dysuria or hematuria. All systems reviewed & are unremarkable except as noted in HPI and below PMFSH Past Medical History Medical History (Updated 10/26/22 @ 20:43 by Krystle Masters PA-C) Diabetes type I Insulin pump in place Surgical History Surgical History (Updated 10/26/22 @ 18:13 by Krystle Masters PA-C) History of appendectomy History of pancreatectomy History of splenectomy Family History Family History Other Unknown family medical history Social History Social History Smoking status: Never smoker Second hand tobacco smoke exposure: No Alcohol intake: never Substance use: never Spiritual care concerns: No Exam Narrative: GENERAL: Well-appearing, well-nourished, and in no acute distress. HEAD: Normocephalic, atraumatic. EYES: EOMI. ENT: Mucous membranes moist. Oropharynx without tonsillar hypertrophy exudate or other lesions. CHEST: Clear to auscultation. No respiratory distress. No wheezes rales or rhonchi HEART: Regular rate and rhythm. No murmur heard. Normal peripheral pulses. ABDOMEN: Soft, nondistended, normal active bowel sounds. Mild tenderness to palpation in the epigastrium, without guarding EXTREMITIES: Normal range of motion. No edema. SKIN: Warm, dry, no rash. NEURO: No focal deficits. Alert and oriented x3. PSYCH: Normal mood and affect Course Vital Signs Vital signs: Vital Signs Temperature 97.7 F 10/26/22 17:16 Pulse Rate 87 10/26/22 17:16 Respiratory Rate 18 10/26/22 17:16 Blood Pressure 122/79 10/26/22 17:16 Pulse Oximetry 100 10/26/22 17:16 Oxygen Delivery Room Air 10/26/22 17:16 Temperature 97.7 F 10/26/22 17:16 Pulse Rate 57 L 10/26/22 19:27 Respiratory Rate 16 10/26/22 19:27 Blood Pressure 126/95 H 10/26/22 19:27 Pulse Oximetry 99 10/26/22 19:27 Oxygen Delivery Room Air 10/26/22 17:16 MDM - Abdominal Pain MDM Narrative Medical decision making narrative: Patient presents to the emergency department for epigastric pain ongoing since this morning. She is afebrile and nontoxic-appearing. Her vitals are stable. CBC with mild leukocytosis to 11.4. Also shows microcytic anemia with hemoglobin of 8.6. Patient does report she h
[2022-10-26 18:12] LABS: Basophils Absolute Auto 0.1 K/mm3 (0.0-0.1); Basophils Percent Auto 0.4 % (0.2-1.2); Eosinophils Absolute Auto 0.1 K/mm3 (0-0.3); Eosinophils Percent Auto 1.2 % (0-4.4); Hemoglobin 8.6 g/dL (12.0-15.0); Immature Granulocyte Absolute 0.03 K/mm3 (0.00-0.031); Immature Granulocyte Percent A 0.3 % (0-0.5); Lymphocytes Absolute Auto 3.45 K/mm3 (0.9-3.2); Lymphocytes Percent Auto 30.2 % (18.3-44.2); Mean Corpuscular HGB Conc 29.7 g/dl (32-36); Mean Corpuscular Hemoglobin 23.5 pg (26-34); Mean Corpuscular Volume 79.2 fl (80-100); Mean Platelet Volume 10.7 fl (7.4-10.4); Monocytes Absolute Auto 1.2 K/mm3 (0.1-0.6); Monocytes Percent Auto 10.8 % (2.6-8.5); Neutrophils Absolute Auto 6.5 K/mm3 (1.3-6.7); Neutrophils Percent Auto 57.1 % (45.5-73.1); Platelet Count Result 577 k/mm3 (150-375); Red Blood Count 3.66 M/mm3 (4.2-5.4); Red Cell Distribution Width 18.2 % (11.5-14.5); White Blood Count 11.4 K/mm3 (4.5-10.0)
[2022-10-26 18:17] LABS: Add Urine Microscopic? NO; Appearance Urine Clear (Clear); Bilirubin Urine Negative (Negative); Blood Urine Negative (Negative); Color Urine Yellow (Yellow); Glucose Urine UA Negative (Negative); Ketones Urine Negative (Negative); Leukocyte Esterase Ur Negative LEU/UL (Negative); Nitrate Urine Negative (Negative); Protein Urine Negative (Negative); Urobilinogen Urine 0.2 mg/dL (<2.0)
[2022-10-26] MEDS: SODIUM CHLORIDE 0.9% IV 1,000 ML 999 ML IV CONT (18:33)
[2022-10-26] MEDS: ONDANSETRON INJ 4 MG/2 ML VIAL IV PUSH (18:34)
[2022-10-26] MEDS: PANTOPRAZOLE SODIUM IV 40 MG VIAL IV PUSH (18:34)
[2022-10-26 18:47] LABS: Platelet Estimate Increased (Adequate)
[2022-10-26 18:49] LABS: Hypochromasia 1+ (NORMAL); Schistocytes None Seen (NORMAL)
[2022-10-26 18:50] LABS: Acanthocytes 2+ (NORMAL); Anisocytosis 2+ (NORMAL)
[2022-10-26 19:05] LABS: Alanine Aminotransferase 28 U/L (6-35); Albumin Level 3.7 g/dL (3.5-5.1); Alkaline Phosphatase 71 U/L (38-126); Anion Gap 6 mmol/L (8-16); Aspartate Amino Transferase 35 U/L (14-36); Bilirubin,Total 0.4 mg/dL (0.2-1.3); Blood Urea Nitrogen 13 mg/dL (7-17); Calcium 7.9 mg/dL (8.4-10.2); Carbon Dioxide 26 mmol/L (22-30); Chloride 106 mmol/L (98-107); Estimated Glomerular Filt Rate > 60; Glucose 112 mg/dL (65-110); Lipase 14 U/L (23-300); Potassium 3.8 mmol/L (3.4-5.0); Sodium 138 mmol/L (137-145)
[2022-10-26 19:12] LABS: Glucose Point of Care 79 mg/dl (65-105)
--- NOTE | 2022-10-26 19:21 | PC.NURSE ---
Pt put on her call light before going to CT to let this RN know she feels like her blood sugar is low. Personal glucose monitor showed reading of 79. POC glucose read 80. Pt taken to CT. Krystle PARADA notified of reading and gave verbal order to stop IV fluids. Asked if ok to give juice to drink, Krystle does not want anything given to pt at this time.
[2022-10-26 19:27] VITALS: BP 126/95; PULSE 57; RESP 16; O2SAT 99
--- NOTE | 2022-10-26 20:18 | PC.NURSE ---
Pt states she no longer feels hypoglycemic after sprite and jello, but still rates her abdominal pain 02/23. Krystle PARADA notified.
[2022-10-26 20:31] VITALS: BP 106/77; RESP 18; O2SAT 100
[2022-10-26 20:46] VITALS: BP 105/74; RESP 18; O2SAT 99
[2022-10-26 21:01] VITALS: BP 108/85; RESP 16; O2SAT 98
== END 2022-10-26 21:18 | disposition home or self-care (01) ==
PROVIDERS: Emergency Medicine; Emergency Provider Physician Assistant
DX: K20.90 Esophagitis, unspecified without bleeding (principal); R59.1 Generalized enlarged lymph nodes; D64.9 Anemia, unspecified; E10.9 Type 1 diabetes mellitus without complications; Z96.41 Presence of insulin pump (external) (internal)
CPT/HCPCS: 36415; 74177; 80053; 81003; 81025; 82948; 83690; 85025; 96361; 96374; 96375; 99284; C9113; J0131; J2405; J7030; Q9967

== ENCOUNTER 2022-11-15 15:14 | Emergency (ER) | payer OTHER, SELFPAY ==
--- NOTE | ~2022-11-15 | XR_ITS ---
EXAMINATION: XR chest 2V DATE: 11/15/2022 16:05 INDICATION: Left-sided chest pain TECHNIQUE: Frontal and lateral views of the chest are obtained COMPARISON: 08/09/2022 FINDINGS: The lungs are free of acute opacities. No pleural effusion or pneumothorax. The cardiomedia stinal silhouette is normal. The visualized bones and soft tissues are unremarkable. IMPRESSION: 1. No acute cardiopulmonary abnormality. Reviewed, dictated and finalized at location B. [employer]
--- NOTE | ~2022-11-15 | CT_ITS ---
EXAMINATION: CTA chest PE protocol DATE: 11/15/2022 18:08 INDICATION: elevated dimer, CP, SOB TECHNIQUE: Computed tomography angiography (CTA) of the chest was performed with 100 mL Omnipaque-350 intravenous contrast timed to evaluate the pulmonary arteries. Coronal maximum intensity projection 3D-reconstructions were created by the technologist. The dose-length product (DLP) was 209.02 mGy-cm. Automated exposure control and iterative reconstruction technique were employed. COMPARISON: X-ray chest, same date. FINDINGS: Lung parenchyma and airways: Clear. Pleura: Unremarkable. Thoracic inlet, axillae and chest wall: Unremarkable. Thoracic aorta: Normal. Mediastinum: Normal. Heart and pericardium: Normal. Coronary artery calcifications: Absent. Upper abdomen: No significant finding. Bones: No acute osseous finding. Pulmonary arteries: Study quality: Adequate. No pulmonary emboli detected. IMPRESSION: No CT evidence of acute pulmonary embolus. Reviewed, dictated and finalized at location K. 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
--- NOTE | 2022-11-15 15:17 | ECG_ITS ---
Measurements Intervals [place] Rate: 95 P: 60 [place]: 120 QRS: 15 QRSD: 103 T: 25 QT: 365 QTc: 460 Interpretive Statements SINUS RHYTHM INCOMPLETE RIGHT BUNDLE BRANCH BLOCK DELAYED PRECORDIAL R/S TRANSITION BORDERLINE T WAVE ABNORMALITY- ANTERIOR LEADS BASELINE ARTIFACT- II, III, AVR, AVF, V3-V6 BORDERLINE ECG COMPARED TO ECG 08/09/2022 20:01:51 SINUS RHYTHM NOW PRESENT T WAVE ABNORMALITY NOW PRESENT Electronically Signed On 11-15-2022 15:49:00 [employer] by Lisandro Valdez D.O.
[2022-11-15 15:18] VITALS: BP 120/88; PULSE 95; RESP 18; TEMP 37; O2SAT 100
--- NOTE | 2022-11-15 15:37 | ED.CHESTPAIN ---
HPI - Chest Pain General Chief Complaint: Chest Pain Stated Complaint: CP Time Seen by Provider: 11/15/22 15:24 History of Present Illness HPI narrative: Patient is a 22-year-old female with a history of recurrent pancreatitis, s/p removal of pancreas, spleen and appendix, insulin-dependent diabetic, here for evaluation of chest pain over the past day. Patient states that while she was at work she noticed a left-sided chest tightness associated with some shortness of breath. States that the pain is a 2 out of 10 at its worst. The pain and dyspnea lasted for about an hour and a half. Denies history of previous similar sensation. She does not take oral contraceptives, denies recent surgeries, trips or travel. Related Data Home Medications Medication Instructions Recorded Confirmed cholecalciferol (vitamin D3) 1,250 50,000 unit PO WEEKLY 10/03/22 10/03/22 mcg (50,000 unit) capsule insulin lispro 100 unit/mL 100 sliding scale dose subcut 10/03/22 10/03/22 subcutaneous solution USEASDIRECTD [id number] 3 cap PO TIDWMEAL 10/03/22 10/03/22 36,000-114,000-180,000 unit capsule,delay rel (Creon) vitamin A 3,000 mcg (10,000 unit) 10,000 unit PO DAILY 10/03/22 10/03/22 capsule Allergies Allergy/AdvReac Type Severity Reaction Status Date / Time No Known Allergies Allergy Verified 11/15/22 15:27 Review of Systems Review of Systems: Gen: Denies fevers or chills Eyes: Denies eye pain or visual change ENT: Denies congestion Respiratory: Reports shortness of breath CV: Reports chest pain GI: Denies abdominal pain nausea, emesis or diarrhea : denies burning, urgency, frequency or hematuria Musculoskeletal: Denies back pain or muscle pain Neuro: Denies numbness, tingling, weakness or focal weakness Skin: Denies rash Except as documented, all other systems reviewed and negative [facility] Past Medical History Medical History Diabetes type I Insulin pump in place Surgical History Surgical History History of appendectomy History of pancreatectomy History of splenectomy Family History Family History Other Unknown family medical history Social History Social History Smoking status: Never smoker Second hand tobacco smoke exposure: No Alcohol intake: never Substance use: never Spiritual care concerns: No Exam Narrative: APPEARANCE: Pale, otherwise well appearing, no pain in distress, well-nourished. Head: Normocephalic and atraumatic. EYES: PERRLA/EOMI, conjunctivae clear NOSE: No nasal drainage EARS: External ear normal in appearance THROAT: Oropharynx is clear. Mucous membranes are moist. NECK: Supple. No adenopathy, no masses. RESPIRATORY: Airway patent, respirations nonlabored. Clear to auscultation bilaterally, no rales, rhonchi, wheezing. CARDIOVASCULAR: Regular rate and rhythm without murmurs, rubs, or gallops. ABDOMINAL: Normoactive bowel sounds. Soft, nontender, nondistended. No rebound tenderness or guarding. MUSCULOSKELETAL: Extremities are warm and well-perfused. Moves all extremities well. No edema. NEURO: Normal speech. No focal neurologic deficits. SKIN: Skin is warm and dry. No rashes. PSYCHIATRIC: Normal affect/mood. Course Vital Signs Vital signs: Vital Signs Temperature 98.6 F 11/15/22 15:18 Pulse Rate 95 11/15/22 15:18 Respiratory Rate 18 11/15/22 15:18 Blood Pressure 120/88 11/15/22 15:18 Pulse Oximetry 100 11/15/22 15:18 Oxygen Delivery Room Air 11/15/22 15:18 Temperature 98.6 F 11/15/22 15:18 Pulse Rate 97 11/15/22 17:08 Respiratory Rate 18 11/15/22 17:08 Blood Pressure 104/60 11/15/22 17:08 Pulse Oximetry 98 11/15/22 17:08 Oxygen Delivery Room Air 11/15/22 15:49
[2022-11-15 15:48] VITALS: PULSE 95
[2022-11-15 15:49] VITALS: O2SAT 100
[2022-11-15 15:50] VITALS: BP 106/69; PULSE 97; RESP 19; O2SAT 100
[2022-11-15 15:55] LABS: Basophils Absolute Auto 0.1 K/mm3 (0.0-0.1); Eosinophils Absolute Auto 0.1 K/mm3 (0-0.3); Eosinophils Percent Auto 0.9 % (0-4.4); Hematocrit 26.2 % (37.0-47.0); Hemoglobin 7.7 g/dL (12.0-15.0); Immature Granulocyte Absolute 0.02 K/mm3 (0.00-0.031); Immature Granulocyte Percent A 0.2 % (0-0.5); Lymphocytes Absolute Auto 3.17 K/mm3 (0.9-3.2); Lymphocytes Percent Auto 35.1 % (18.3-44.2); Mean Corpuscular HGB Conc 29.4 g/dl (32-36); Mean Corpuscular Hemoglobin 22.9 pg (26-34); Mean Platelet Volume 9.9 fl (7.4-10.4); Monocytes Absolute Auto 1.2 K/mm3 (0.1-0.6); Monocytes Percent Auto 13.4 % (2.6-8.5); Neutrophils Absolute Auto 4.5 K/mm3 (1.3-6.7); Neutrophils Percent Auto 49.4 % (45.5-73.1); Platelet Count Result 532 k/mm3 (150-375); Red Blood Count 3.36 M/mm3 (4.2-5.4); Red Cell Distribution Width 17.4 % (11.5-14.5)
[2022-11-15 16:07] LABS: INR 1.1; Prothrombin Time 14.1 Seconds (11.1-14.7)
[2022-11-15 16:08] LABS: Partial Thromboplastin Time 29.2 SECONDS (22.3-36.8)
[2022-11-15 16:09] LABS: Alanine Aminotransferase 27 U/L (6-35); Albumin Level 3.5 g/dL (3.5-5.1); Alkaline Phosphatase 89 U/L (38-126); Anion Gap 4 mmol/L (8-16); Aspartate Amino Transferase 35 U/L (14-36); Bilirubin,Total 0.4 mg/dL (0.2-1.3); Blood Urea Nitrogen 17 mg/dL (7-17); Calcium 7.7 mg/dL (8.4-10.2); Carbon Dioxide 22 mmol/L (22-30); Chloride 107 mmol/L (98-107); Estimated CRCL calculation 116 ml/min; Estimated Glomerular Filt Rate > 60; Glucose 173 mg/dL (65-110); Lipase 46 U/L (23-300); Potassium 3.7 mmol/L (3.4-5.0); Sodium 133 mmol/L (137-145)
[2022-11-15 16:16] LABS: D Dimer 0.97 ug/mL (<0.48)
[2022-11-15 16:20] LABS: Troponin I < 0.012 ng/mL (0.000-0.034)
[2022-11-15 16:30] LABS: Atypical Lymphocytes Present; Crenated RBC 1+ (NORMAL); Hypochromasia 1+ (NORMAL); Ovalocytes 1+ (NORMAL); Poikilocytosis 1+ (NORMAL); Schistocytes 1+ (NORMAL); Target Cells 1+ (NORMAL)
[2022-11-15 17:08] VITALS: BP 104/60; PULSE 97; RESP 18; O2SAT 98
[2022-11-15 18:35] VITALS: BP 113/76; PULSE 97; RESP 18; O2SAT 98
== END 2022-11-15 18:37 | disposition home or self-care (01) ==
PROVIDERS: Emergency Medicine; Emergency Provider Physician Assistant
DX: D64.9 Anemia, unspecified (principal); E10.9 Type 1 diabetes mellitus without complications; Z96.41 Presence of insulin pump (external) (internal); Z90.410 Acquired total absence of pancreas; Z90.81 Acquired absence of spleen; Z79.4 Long term (current) use of insulin; I45.10 Unspecified right bundle-branch block; R94.31 Abnormal electrocardiogram [ECG] [EKG]
CPT/HCPCS: 36415; 71046; 71275; 80053; 81025; 83690; 84484; 85025; 85380; 85610; 85730; 93005; 99284; Q9967

== ENCOUNTER 2022-12-12 18:53 | Emergency (ER) | payer OTHER, SELFPAY ==
--- NOTE | ~2022-12-12 | XR_ITS ---
EXAM: XR abdomen/kub 1V DATE: 12/12/2022 19:13 HISTORY: CONSTIPATION . COMPARISON: None available. FINDINGS: Clear lung bases. The rectum is dilated to 10.4 cm by formed stool. Large volume of coloni c feces. No organomegaly. No abnormal abdominal calcification. Regional bones and soft tissues normal for age. IMPRESSION: Fecal impaction. Reviewed, dictated and finalized at location K. WORKER IMPRESSION: Fecal impaction.
[2022-12-12 19:00] VITALS: BP 120/82; PULSE 104; RESP 16; TEMP 36.8; O2SAT 100
--- NOTE | 2022-12-12 19:41 | ED.ABDPAIN ---
HPI - Abdominal Pain General Chief Complaint: Abdominal Pain Stated Complaint: CONSTIPATION Time Seen by Provider: 12/12/22 19:10 Source: patient, RN notes reviewed and old records reviewed Mode of arrival: ambulatory Limitations: no limitations History of Present Illness HPI narrative: 22 year female who presents to [facility] care with complaints of lower abdominal pain which has increased today. Patient reports that she realized that she hadn't had a bowel movement for 3 days and recently was started on iron tablets. Patient states that she normally takes fiber gummies daily due to history of problems with constipation. Patient reports that she has taken Miralax has used an enema, and also a suppository and has not been able to have a bowel movement. X-ray completed and large rectal dilation noted with rectum 10.4 cm. 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 Patient reports her appetite has decreased. 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 MD elicited complaint: abdominal pain and other (constipation) Pertinent past history: other (diabetes, pancreas removed, spleenectomy) Onset (ago): day(s) (3) Pain scale (0-10): 4 Quality: other (cramping) Treatments prior to arrival: other (miralax, ducolax suppository, enema) Related Data Home Medications Medication Instructions Recorded Confirmed cholecalciferol (vitamin D3) 1,250 50,000 unit PO WEEKLY 10/03/22 12/12/22 mcg (50,000 unit) capsule insulin lispro 100 unit/mL 100 sliding scale dose subcut 10/03/22 12/12/22 subcutaneous solution USEASDIRECTD [id number]-[id number] 3 cap PO TIDWMEAL 10/03/22 12/12/22 36,000-114,000-180,000 unit capsule,delay rel (Creon) vitamin A 3,000 mcg (10,000 unit) 10,000 unit PO DAILY 10/03/22 12/12/22 capsule Allergies Allergy/AdvReac Type Severity Reaction Status Date / Time No Known Allergies Allergy Verified 12/12/22 18:59 Review of Systems Review of Systems: CONSTITUTIONAL: Denies fever, chills, or sweats. ENT: Denies rhinorrhea, congestion, sore throat, or otalgia. CARDIOVASCULAR: Denies chest pain, palpitations, or edema. RESPIRATORY: Denies cough or dyspnea. GASTROINTESTINAL: Reports lower abdominal pain described as cramping,no nausea, vomiting, diarrhea. GENITOURINARY: Denies dysuria or hematuria. SKIN: Denies rash or itching. MUSCULOSKELETAL: Denies back pain, joint pain, or myalgia. NEUROLOGIC: Denies headache, numbness, or weakness. All systems reviewed & are unremarkable except as noted in HPI and below PMFSH Past Medical History Medical History Diabetes type I Insulin pump in place Surgical History Surgical History History of appendectomy History of pancreatectomy History of splenectomy Family History Family History Other Unknown family medical history Social History Social History Smoking status: Never smoker Second hand tobacco smoke exposure: No Alcohol intake: never Substance use: never Spiritual care concerns: No Comments At time of signature, agree with nursing past medical, surgical, social and family history. There is no relevant family history pertinent to the presenting complaint Exam Narrative: GENERAL:Chronic ill -appearing, well-nourished, pale and in no acute distress. HEAD: Normocephalic, atraumatic. EYES: PERRLA, conjunctivae clear, and EOMI. ENT: Nares clear. Mucous membranes moist. Oropharynx without edema, erythema, or lesions. Tonsils not enlarged and without exudate. NECK: Supple. No lymphadenopathy CHEST: Speaks in full sentences. No respiratory distress. HEART: Regular rate and rhythm.
[2022-12-12 19:46] LABS: Glucose Point of Care 74 mg/dl (65-105)
== END 2022-12-12 20:08 | disposition short-term general hospital (02) ==
PROVIDERS: Emergency Provider Registered Nurse
DX: K59.00 Constipation, unspecified (principal); E10.9 Type 1 diabetes mellitus without complications
CPT/HCPCS: 74018; 82948; 99213; G0463

== ENCOUNTER 2022-12-12 20:24 | Emergency (ER) | payer OTHER, SELFPAY ==
[2022-12-12 20:29] VITALS: BP 113/68; PULSE 89; RESP 16; TEMP 36.8; O2SAT 100
[2022-12-12 22:16] VITALS: BP 104/76; PULSE 87; RESP 17; O2SAT 100
--- NOTE | 2022-12-12 22:56 | PC.NURSE ---
Patient states she wants to attempt to have a BM without the enema. Patient on bedside commode. Patient has call light within reach.
[2022-12-12 23:00] LABS: Appearance Urine Cloudy (Clear); Bacteria Urine Rare /hpf; Bilirubin Urine Negative (Negative); Blood Urine 3+ (Negative); Color Urine Yellow (Yellow); Glucose Urine UA Negative (Negative); Ketones Urine 2+ mg/dL (Negative); Leukocyte Esterase Ur Trace LEU/UL (Negative); Nitrate Urine Negative (Negative); Non Pathogenic Casts 0-2; Protein Urine Trace mg/dL (Negative); Specific Grav Ur 1.034 (1.001-1.035); Squamous Epithelial Cell Urine Occasional /hpf (Few); Urobilinogen Urine 0.2 mg/dL (<2.0); pH Urine 5.5 (5.0-9.0)
--- NOTE | 2022-12-12 23:02 | PC.NURSE ---
Patient able to have a large BM on beside commode. Patient states she feels much better. Patient refused enema. ERP notified.
[2022-12-12 23:04] LABS: Add Urine Microscopic? YES; RBC Urine >75 /hpf (0-2)
--- NOTE | 2022-12-12 23:19 | ED.GENADULT ---
HPI - General Adult General Chief complaint: Abdominal Pain Stated complaint: constipated x 3 days Time Seen by Provider: 12/12/22 22:20 History of Present Illness HPI narrative: Patient is a 22-year-old female who presents the emergency department with chief complaint of constipation. Patient was seen at urgent care and just has not had a bowel movement in several days and was found to have a large amount of stool in her colon. They did not perform a rectal exam on the patient at the other facility and transferred the patient to the emergency department for disimpaction Related Data Home Medications Medication Instructions Recorded Confirmed cholecalciferol (vitamin D3) 1,250 50,000 unit PO WEEKLY 10/03/22 12/12/22 mcg (50,000 unit) capsule insulin lispro 100 unit/mL 100 sliding scale dose subcut 10/03/22 12/12/22 subcutaneous solution USEASDIRECTD uolahw-yktegofq-mpamhhp 3 cap PO TIDWMEAL 10/03/22 12/12/22 36,000-114,000-180,000 unit capsule,delay rel (Creon) vitamin A 3,000 mcg (10,000 unit) 10,000 unit PO DAILY 10/03/22 12/12/22 capsule Allergies Allergy/AdvReac Type Severity Reaction Status Date / Time No Known Allergies Allergy Verified 12/12/22 18:59 Review of Systems Review of Systems: A 10 system review of systems was completed on the patient and is negative except for what is stated in the HPI. Nursing and ancillary documentation was reviewed. PMFSH Past Medical History Medical History Diabetes type I Insulin pump in place Surgical History Surgical History History of appendectomy History of pancreatectomy History of splenectomy Family History Family History Other Unknown family medical history Social History Social History Smoking status: Never smoker Second hand tobacco smoke exposure: No Alcohol intake: never Substance use: never Spiritual care concerns: No Exam Narrative: GENERAL: Well-appearing, well-nourished, and in no acute distress. HEAD: Normocephalic, atraumatic. EYES: PERRLA and EOMI. ENT: Nares clear, no rhinorrhea or epistaxis. Mucous membranes moist. NECK: Supple. CHEST: Clear to auscultation. No respiratory distress. HEART: Regular rate and rhythm. No murmur heard. Normal peripheral pulses. ABDOMEN: Soft, nontender, nondistended, normal active bowel sounds. : Rectal exam performed there is a large amount of stool in the rectal vault this was manually manipulated stool was trace guaiac positive EXTREMITIES: Normal range of motion. No edema. SKIN: Warm, dry, no rash. NEURO: No focal deficits. Alert and oriented x3. PSYCH: Normal mood and affect. Course Vital Signs Vital signs: Vital Signs Temperature 36.8 C 12/12/22 20:29 Pulse Rate 89 12/12/22 20:29 Respiratory Rate 16 12/12/22 20:29 Blood Pressure 113/68 12/12/22 20:29 Pulse Oximetry 100 12/12/22 20:29 Temperature 36.8 C 12/12/22 20:29 Pulse Rate 87 12/12/22 22:16 Respiratory Rate 17 12/12/22 22:16 Blood Pressure 104/76 12/12/22 22:16 Pulse Oximetry 100 12/12/22 22:16 Medical Decision Making MDM Narrative Medical decision making narrative: Patient had a documented KUB showing a large amount of stool in the colon. Patient tolerated rectal exam and was able to have a bowel movement that was large and alleviating the patient's discomfort. Vital Signs Vital Signs: Vital Signs Temperature 36.8 C 12/12/22 20:29 Pulse Rate 89 12/12/22 20:29 Respiratory Rate 16 12/12/22 20:29 Blood Pressure 113/68 12/12/22 20:29 Pulse Oximetry 100 12/12/22 20:29 Temperature 36.8 C 12/12/22 20:29 Pulse Rate 87 12/12/22 22:16 Respiratory Rate 17 12/12/22 22:16 Blood Pressure 104/76
== END 2022-12-12 23:29 | disposition home or self-care (01) ==
PROVIDERS: Emergency Provider Emergency Medicine
DX: K59.00 Constipation, unspecified (principal); E10.9 Type 1 diabetes mellitus without complications; Z96.41 Presence of insulin pump (external) (internal); Z79.4 Long term (current) use of insulin; Z90.81 Acquired absence of spleen
CPT/HCPCS: 81001; 99283

== ENCOUNTER 2023-01-05 22:18 | Emergency (ER) | payer OTHER, SELFPAY ==
--- NOTE | ~2023-01-05 | XR_ITS ---
EXAMINATION: XR chest 1V portable Exam Date/Time: 01/05/2023 23:59 CDT HISTORY: Chest pain MIDDLE OF CHEST SOB Comparison: 11/15/2022. RESULT: Lines, tubes, and devices: None. Lungs and pleura: Clear. Cardiomediastinal silhouette: Stable. Other: No acute osseous or upper abdominal finding. IMPRESSION: No acute cardiopulmonary process. Reviewed, dictated and finalized at location K.
[2023-01-05 22:47] VITALS: BP 109/79; PULSE 119; RESP 24; TEMP 36.8; O2SAT 100
--- NOTE | 2023-01-05 22:52 | ECG_ITS ---
Measurements Intervals [place] Rate: 118 P: 53 NE: 143 QRS: 9 QRSD: 90 T: 69 QT: 361 QTc: 506 Interpretive Statements SINUS TACHYCARDIA INCOMPLETE RIGHT BUNDLE BRANCH BLOCK LOW QRS VOLTAGE IN PRECORDIAL LEADS BASELINE ARTIFACT- I, II, III, AVR, AVL, AVF, V4-V6 ABNORMAL ECG COMPARED TO ECG 11/15/2022 15:39:03 SINUS TACHYCARDIA NOW PRESENT Electronically Signed On 01-06-2023 6:26:39 CDT by Lisandro Valdez D.O.
[2023-01-05 23:07] VITALS: PULSE 111; RESP 16
[2023-01-05 23:15] VITALS: PULSE 119; RESP 22
--- NOTE | 2023-01-05 23:16 | PC.NURSE ---
Per Patient, insulin pump is turned off but will given correction dose if dexcom senses her blood glucose is high. patient states she is unsure how to turn that function off at this time.
[2023-01-05 23:30] VITALS: PULSE 104; RESP 37
[2023-01-05 23:31] VITALS: BP 102/72; PULSE 106; RESP 14
[2023-01-05 23:48] VITALS: PULSE 111; RESP 23
[2023-01-06] VITALS (8 sets, daily range): BP systolic 83; BP diastolic 51; PULSE 102–118; RESP 14–25
[2023-01-06] MEDS: PROCHLORPERAZINE EDISYLATE 10 MG/2 ML VIAL IV PUSH (00:06)
[2023-01-06] MEDS: SODIUM CHLORIDE 0.9% IV 2,000 ML 999 ML IV CONT (00:06)
[2023-01-06] MEDS: BELLADONNA ALK/PHENOB ELIX 10 ML, MAG HYDROX/ALUMINUM HYD/SIMETH 30 ML, LIDOCAINE HCL 2... PO (00:07)
--- NOTE | 2023-01-06 00:10 | ED.GENADULT ---
HPI - General Adult General Chief complaint: Unspecified Stated complaint: CP and SOB Time Seen by Provider: 01/05/23 23:10 History of Present Illness HPI narrative: This is a 22-year-old female with past history of diabetes status post pancreatic resection, who presents the emergency department complaining of nausea vomiting, chest and abdominal pain. Patient states she vomited several times earlier today without blood and thereafter had sharp chest and general abdominal pain. She complains of some shortness of breath after the vomiting but denies any fevers or bleeding. Related Data Home Medications Medication Instructions Recorded Confirmed cholecalciferol (vitamin D3) 1,250 50,000 unit PO WEEKLY 10/03/22 12/12/22 mcg (50,000 unit) capsule insulin lispro 100 unit/mL 100 sliding scale dose subcut 10/03/22 12/12/22 subcutaneous solution USEASDIRECTD axqrku-yxppnblx-jbjtmgl 3 cap PO TIDWMEAL 10/03/22 12/12/22 36,000-114,000-180,000 unit capsule,delay rel (Creon) vitamin A 3,000 mcg (10,000 unit) 10,000 unit PO DAILY 10/03/22 12/12/22 capsule Allergies Allergy/AdvReac Type Severity Reaction Status Date / Time No Known Allergies Allergy Verified 12/12/22 18:59 Review of Systems Review of Systems: CONSTITUTIONAL: Denies fever, chills, or sweats. EYES: Denies visual changes, redness, or discharge. ENT: Denies rhinorrhea, congestion, sore throat, or otalgia. CARDIOVASCULAR: Sharp substernal chest pain denies palpitations, or edema. RESPIRATORY: Denies cough or dyspnea. GASTROINTESTINAL: Cramping general abdominal pain, nausea, vomiting, denies diarrhea. GENITOURINARY: Denies dysuria or hematuria. SKIN: Denies rash or itching. MUSCULOSKELETAL: Denies back pain, joint pain, or myalgia. NEUROLOGIC: Denies headache, numbness, dizziness, or weakness. PSYCHIATRIC: Denies anxiety or depression. [facility] Past Medical History Medical History Diabetes type I Insulin pump in place Surgical History Surgical History History of appendectomy History of pancreatectomy History of splenectomy Family History Family History Other Unknown family medical history Social History Social History Smoking status: Never smoker Second hand tobacco smoke exposure: No Alcohol intake: never Substance use: never Spiritual care concerns: No Exam Narrative: GENERAL: Well-developed, well-nourished, tearful HEAD: Normocephalic, atraumatic. EYES: PERRLA and EOMI. ENT: Nares clear, no rhinorrhea or epistaxis. Mucous membranes moist. Oropharynx without tonsillar hypertrophy exudate or other lesions. CHEST: Clear to auscultation. No respiratory distress. No wheezes rales or rhonchi HEART: Tachycardic with regular rhythm. No murmur heard. Normal peripheral pulses. ABDOMEN: Soft, diffuse mild tenderness to palpation without mass, guarding or rebound, nondistended, normal active bowel sounds. EXTREMITIES: Normal range of motion. No edema. SKIN: Warm, dry, no rash. NEURO: No focal deficits. Alert and oriented x3. PSYCH: Normal mood and affect. Course Course Emergency Course: 00:52 - On reevaluation, the patient states her pain and nausea is improved. Heart rate is improved to the low 100s. 02:13 - Lab results reported. White blood cell count elevated to 25.7 with platelet count of 639. Hemoglobin 10.9 (this is higher than the patient's baseline as of October (7.7). It is possible these reflect hemoconcentration, however I am concerned that they may also reflect malignancy. I discussed these findings with the patient including recommendation for admission for further evaluation, however she politely refuses. She voices understanding including risks of delayed evaluation and treatment for malignanc
[2023-01-06 00:12] LABS: Glucose Point of Care 149 mg/dl (65-105)
[2023-01-06 00:28] LABS: Glucose Point of Care 136 mg/dl (65-105)
[2023-01-06 01:08] LABS: Alanine Aminotransferase 20 U/L (6-35); Albumin Level 4.3 g/dL (3.5-5.1); Alkaline Phosphatase 122 U/L (38-126); Anion Gap 10 mmol/L (8-16); Aspartate Amino Transferase 36 U/L (14-36); Bilirubin,Total 0.5 mg/dL (0.2-1.3); Blood Urea Nitrogen 19 mg/dL (7-17); Calcium 8.7 mg/dL (8.4-10.2); Carbon Dioxide 20 mmol/L (22-30); Chloride 106 mmol/L (98-107); Estimated CRCL calculation 137 ml/min; Estimated Glomerular Filt Rate > 60; Glucose 131 mg/dL (65-110); Potassium 3.5 mmol/L (3.4-5.0); Sodium 136 mmol/L (137-145)
[2023-01-06 01:10] LABS: Lactic Acid Reflex 2.3 mmol/L (0.7-2.0)
[2023-01-06 01:13] LABS: Hematocrit 36.9 % (37.0-47.0); Hemoglobin 10.9 g/dL (12.0-15.0); Mean Corpuscular HGB Conc 29.5 g/dl (32-36); Mean Corpuscular Volume 77.8 fl (80-100); Mean Platelet Volume 11.5 fl (7.4-10.4); Platelet Count Result 639 k/mm3 (150-375); Red Blood Count 4.74 M/mm3 (4.2-5.4); Red Cell Distribution Width 21.3 % (11.5-14.5); White Blood Count 25.7 K/mm3 (4.5-10.0)
[2023-01-06 02:05] LABS: Band Neutrophils Percent 15 % (0-6); Giant Platelets Present; Large Platelets Present; Lymphocytes Absolute Manual 0.51 K/mm3 (1.1-4.5); Metamyelocytes Percent 1 %; Monocytes Absolute Manual 1.02 K/mm3 (0.1-0.90); Monocytes Percent Manual 4 % (3-9); Myelocytes Percent 1 %; Neutrophils Absolute Manual 23.64 K/mm3 (1.7-7.2); Neutrophils Percent Manual 77 % (46-73); Total Cells Counted 100
[2023-01-06 02:06] LABS: Anisocytosis 2+ (NORMAL); Hypochromasia 2+ (NORMAL); Macrocytosis 2+ (NORMAL); Microcytosis 1+ (NORMAL); Poikilocytosis 3+ (NORMAL); Schistocytes 2+ (NORMAL)
[2023-01-06 02:07] LABS: Acanthocytes 3+ (NORMAL); Burr Cells 2+ (NORMAL); Crenated RBC 3+ (NORMAL); Polychromasia 1+ (NORMAL); Smudge Cells MODERATE
[2023-01-06 03:53] LABS: Reflex Lactic Acid Yes or No Add Lactic
== END 2023-01-06 02:37 | disposition left against medical advice (07) ==
PROVIDERS: Emergency Provider Preventive Medicine Aerospace Medicine
DX: R11.2 Nausea with vomiting, unspecified (principal); D72.829 Elevated white blood cell count, unspecified; R00.0 Tachycardia, unspecified; E10.9 Type 1 diabetes mellitus without complications; Z79.4 Long term (current) use of insulin; Z96.41 Presence of insulin pump (external) (internal)
CPT/HCPCS: 36415; 71045; 80053; 81025; 82948; 83605; 85025; 93005; 96361; 96365; 96375; 99284; A9270; J0131; J0780; J7030

== ENCOUNTER 2023-05-09 16:03 | Emergency (ER) | payer OTHER, SELFPAY ==
--- NOTE | ~2023-05-09 | CT_ITS ---
Non-contrast Head CT History: Headache Technique: Axial non-contrast imaging of the brain was performed. Dose reduction technique was used on this scan by utilizing automated exposure control and iterative reconstruction technique. The dose -length product (DLP) was 605.33 mGy-cm. Findings: There is no evidence of intracranial hemorrhage, mass lesion, or acute infarct. Brain par enchyma appears normal. The ventricles and subarachnoid spaces are normal in size. The calvarium ap pears normal. The visualized paranasal sinuses and mastoid air cells are clear. Impression: No significant abnormality seen. Reviewed, dictated and finalized at location . Impression: No significant abnormality seen.
[2023-05-09 16:05] VITALS: BP 118/85; PULSE 71; RESP 18; TEMP 36.4; O2SAT 100
--- NOTE | 2023-05-09 17:27 | ED.HA ---
HPI - Headache General Chief Complaint: Headache Stated Complaint: migraine/vomiting Time Seen by Provider: 05/09/23 17:01 Source: patient Mode of arrival: EMS Limitations: no limitations History of Present Illness HPI Narrative: Patient is a 23-year-old female who presents to the ED via EMS with report of migraine headache. Patient reports she was at work this afternoon around 3pm today when she suddenly developed a diffuse frontal headache. She denies any triggers to the headache. Patient states it felt like the worst headache of her life. Patient developed N/V and reported having several episodes of emesis. EMS was then called. Patient took Tylenol at 330pm and reports headache is currently improving. Patient has hx of migraines and cluster migraines, but states this did not feel similar. Patient denies any abdominal pain, fevers, neck pain, dizziness, lightheadedness, vision changes, focal weakness. Patient does report having some tingling of her extremities, but notes she was hyperventilating in the ambulance on the way here. No numbness. Related Data Home Medications Medication Instructions Recorded Confirmed cholecalciferol (vitamin D3) 1,250 50,000 unit PO WEEKLY 10/03/22 12/12/22 mcg (50,000 unit) capsule insulin lispro 100 unit/mL 100 sliding scale dose subcut 10/03/22 12/12/22 subcutaneous solution USEASDIRECTD qihdsp-mukrmxbx-nwnxubs 3 cap PO TIDWMEAL 10/03/22 12/12/22 36,000-114,000-180,000 unit capsule,delay rel (Creon) vitamin A 3,000 mcg (10,000 unit) 10,000 unit PO DAILY 10/03/22 12/12/22 capsule Allergies Allergy/AdvReac Type Severity Reaction Status Date / Time No Known Allergies Allergy Verified 05/09/23 16:59 Review of Systems Review of Systems: CONSTITUTIONAL: Denies fever, chills, or sweats. EYES: Denies visual changes. CARDIOVASCULAR: Denies chest pain. RESPIRATORY: Denies dyspnea. GASTROINTESTINAL: See HPI. MUSCULOSKELETAL: Denies back pain, neck pain. NEUROLOGIC: See HPI. All systems reviewed & are unremarkable except as noted in HPI and below PMFSH Past Medical History Medical History Diabetes type I Insulin pump in place Surgical History Surgical History History of appendectomy History of pancreatectomy History of splenectomy Family History Family History Other Unknown family medical history Social History Social History Smoking status: Never smoker Second hand tobacco smoke exposure: No Alcohol intake: never Substance use: never Spiritual care concerns: No Exam Narrative: GENERAL: Well appearing, well-nourished, non-toxic, in no acute distress. HEAD: Normocephalic, atraumatic. EYES: PERRL/EOMI, conjunctivae clear bilaterally. No nystagmus. NECK: Supple. No adenopathy, no masses. No meningeal signs. RESPIRATORY: Airway patent, respirations nonlabored. Clear to auscultation bilaterally, no rales, rhonchi, wheezing. CARDIOVASCULAR: Regular rate and rhythm without murmurs, rubs, or gallops. Radial pulses 2+ and equal bilaterally. ABDOMINAL: Soft, no tenderness throughout abdomen, nondistended, no hepatosplenomegaly. Normoactive BS. MUSCULOSKELETAL: Moves all extremities. Strength/ROM intact without gross deformities. SKIN: Warm, dry, normal color. No rashes. NEURO: A&O X3. Speech clear. Follows commands. CN II-XII intact. Sensation intact to extremities. Steady gait. No ataxic movements. Strength 5/5 in upper and lower extremities bilaterally. Equal skirt trimmer strength bilaterally. No focal deficits. PSYCHIATRIC: Appropriate mood and affect. Normal interaction. Course Vital Signs Vital signs: Vital Signs Temperature 97.5 F L 05/09/23 16:05 Pulse Rate 71 05/09/23 16:05 Respiratory Rate 18 05/09/23 16
[2023-05-09] MEDS: ONDANSETRON HCL ODT 4 MG TABLET PO (17:28)
== END 2023-05-09 18:21 | disposition home or self-care (01) ==
PROVIDERS: Emergency Provider Physician Assistant
DX: G43.909 Migraine, unspecified, not intractable, without status migrainosus (principal); E10.8 Type 1 diabetes mellitus with unspecified complications; Z96.41 Presence of insulin pump (external) (internal); Z79.4 Long term (current) use of insulin; Z90.81 Acquired absence of spleen; Z90.410 Acquired total absence of pancreas
CPT/HCPCS: 70450; 99284; A9270

== ENCOUNTER 2023-06-14 19:34 | Emergency (ER) | payer OTHER, SELFPAY ==
--- NOTE | ~2023-06-14 | CT_ITS ---
CT of the Abdomen and Pelvis: Indication: Abdominal pain Technique: 2.5 mm axial scans were obtained through the abdomen and pelvis following intravenous adm inistration of 100 cc of Omnipaque 350. Dose reduction technique was used on this scan by utilizing a utomated exposure control and iterative reconstruction technique. The dose-length product (DLP) was 4 68.19 mGy-cm. COMPARISON: 10/26/2022 Findings: Scans through the lung bases are unremarkable. The liver, gallbladder, adrenals and kidneys are within normal limits. Spleen is not visualized. Panc reas is not visualized. No evidence of aortic aneurysm. No lymphadenopathy. No bowel obstruction or bowel wall thickening. There is no evidence to suggest acute appendicitis. Cosby ggestion of prior bariatric surgery. Images through the pelvis were performed. Urinary bladder unremarkable. 2.4 cm right adnexal cyst pre sent. No ascites. Bilateral L5 pars interarticularis defects are present, without subluxation. Impression: No acute abnormality. Apparent prior splenectomy and pancreatectomy. 2.4 cm right adnexal cyst. Reviewed, dictated and finalized at [facility]. Impression: No acute abnormality. Apparent prior splenectomy and pancreatectomy. 2.4 cm right adnexal cyst.
[2023-06-14 19:41] VITALS: BP 118/84; PULSE 75; RESP 15; TEMP 36.8; O2SAT 99
[2023-06-14 20:09] LABS: Basophils Percent Auto 0.4 % (0.2-1.2); Eosinophils Absolute Auto 0.1 K/mm3 (0-0.3); Eosinophils Percent Auto 1.1 % (0-4.4); Hematocrit 38.7 % (37.0-47.0); Hemoglobin 12.1 g/dL (12.0-15.0); Immature Granulocyte Absolute 0.02 K/mm3 (0.00-0.031); Immature Granulocyte Percent A 0.2 % (0-0.5); Lymphocytes Absolute Auto 3.15 K/mm3 (0.9-3.2); Lymphocytes Percent Auto 34.8 % (18.3-44.2); Mean Corpuscular HGB Conc 31.3 g/dl (32-36); Mean Corpuscular Hemoglobin 27.9 pg (26-34); Mean Corpuscular Volume 89.4 fl (80-100); Mean Platelet Volume 10.5 fl (7.4-10.4); Monocytes Absolute Auto 1.3 K/mm3 (0.1-0.6); Monocytes Percent Auto 14.7 % (2.6-8.5); Neutrophils Absolute Auto 4.4 K/mm3 (1.3-6.7); Neutrophils Percent Auto 48.8 % (45.5-73.1); Platelet Count Result 481 k/mm3 (150-375); Red Blood Count 4.33 M/mm3 (4.2-5.4); Red Cell Distribution Width 14.5 % (11.5-14.5)
[2023-06-14 20:10] LABS: Alanine Aminotransferase 25 U/L (6-35); Alkaline Phosphatase 118 U/L (38-126); Anion Gap 8 mmol/L (8-16); Aspartate Amino Transferase 32 U/L (14-36); Bilirubin,Total 0.3 mg/dL (0.2-1.3); Blood Urea Nitrogen 20 mg/dL (7-17); Calcium 8.7 mg/dL (8.4-10.2); Carbon Dioxide 24 mmol/L (22-30); Chloride 101 mmol/L (98-107); Estimated CRCL calculation 115 ml/min; Estimated Glomerular Filt Rate > 60; Glucose 179 mg/dL (65-110); Lipase 19 U/L (23-300); Potassium 3.8 mmol/L (3.4-5.0); Sodium 133 mmol/L (137-145)
[2023-06-14 20:24] LABS: Appearance Urine Clear (Clear); Bilirubin Urine Negative (Negative); Blood Urine Negative (Negative); Color Urine Yellow (Yellow); Glucose Urine UA 3+ mg/dL (Negative); Ketones Urine Negative (Negative); Leukocyte Esterase Ur Negative LEU/UL (Negative); Nitrate Urine Negative (Negative); Protein Urine Negative (Negative); Specific Grav Ur 1.026 (1.001-1.035); Urobilinogen Urine 0.2 mg/dL (<2.0)
[2023-06-14 20:26] LABS: Add Urine Microscopic? NO
[2023-06-15 00:10] VITALS: BP 134/79; PULSE 67; RESP 14; O2SAT 100
[2023-06-15 01:46] VITALS: BP 113/81; PULSE 66; RESP 20; O2SAT 100
[2023-06-15] MEDS: BELLADONNA ALK/PHENOB ELIX 10 ML, MAG HYDROX/ALUMINUM HYD/SIMETH 30 ML, LIDOCAINE HCL 2... PO (01:57)
[2023-06-15] MEDS: ACETAMINOPHEN 500 MG TABLET 1000 MG PO (01:57)
--- NOTE | 2023-06-15 02:35 | ED.ABDPAIN ---
HPI - Abdominal Pain General Chief Complaint: Abdominal Pain <EDUARDO Muniz Last Filed: 06/15/23 05:01> Stated Complaint: ab pain x4-5 days <EDUARDO Muniz Last Filed: 06/15/23 05:01> Time Seen by Provider: 06/15/23 00:11 <EDUARDO Muniz Last Filed: 06/15/23 05:01> Source: patient <EDUARDO Muniz Last Filed: 06/15/23 05:01> Mode of arrival: ambulatory <EDUARDO Muniz Last Filed: 06/15/23 05:01> Limitations: no limitations <EDUARDO Muniz Last Filed: 06/15/23 05:01> History of Present Illness HPI narrative: Patient is a 23-year-old female, with past medical history of insulin-dependent diabetic, recurrent pancreatitis status post pancreatectomy, splenectomy, and appendectomy, who presents to the ED with report of epigastric abdominal pain. Patient reports having constant pain since Tuesday. She states pain is worse with eating. She has tried Tylenol, ibuprofen, heating pad at home without relief. The only somewhat alleviating factor is laying down flat. She reports intermittent nausea, decreased appetite, denies vomiting, fevers, diarrhea, constipation, urinary complaints. Patient has not taken anything for pain today. <EDUARDO Muniz Last Filed: 06/15/23 05:01> Related Data Home Medications: Home Medications Medication Instructions Recorded Confirmed cholecalciferol (vitamin D3) 1,250 50,000 unit PO WEEKLY 10/03/22 12/12/22 mcg (50,000 unit) capsule insulin lispro 100 unit/mL 100 sliding scale dose subcut 10/03/22 12/12/22 subcutaneous solution USEASDIRECTD shstsu-bdokegjg-zsdxton 3 cap PO TIDWMEAL 10/03/22 12/12/22 36,000-114,000-180,000 unit capsule,delay rel (Creon) vitamin A 3,000 mcg (10,000 unit) 10,000 unit PO DAILY 10/03/22 12/12/22 capsule <Peri Cherry PA-C - Last Filed: 06/15/23 05:01> Allergies/Adverse Reactions: Allergies Allergy/AdvReac Type Severity Reaction Status Date / Time No Known Allergies Allergy Verified 06/15/23 00:14 <Peri Cherry PA-C - Last Filed: 06/15/23 05:01> Review of Systems Review of Systems: CONSTITUTIONAL: Denies fever, chills, or sweats. CARDIOVASCULAR: Denies chest pain, palpitations, or edema. RESPIRATORY: Denies cough or dyspnea. GASTROINTESTINAL: See HPI. GENITOURINARY: Denies dysuria or hematuria. SKIN: Denies rash or itching. MUSCULOSKELETAL: Denies back pain, joint pain, or myalgia. <Peri Cherry PA-C - Last Filed: 06/15/23 05:01> All systems reviewed & are unremarkable except as noted in HPI and below <Peri Cherry PA-C - Last Filed: 06/15/23 05:01> [facility] Past Medical History Medical History: Medical History Diabetes type I Insulin pump in place <Peri Cherry PA-C - Last Filed: 06/15/23 05:01> Surgical History Surgical History: Surgical History History of appendectomy History of pancreatectomy History of splenectomy <Peri Cherry PA-C - Last Filed: 06/15/23 05:01> Family History Family History: Family History Other Unknown family medical history <Peri Cherry PA-C - Last Filed: 06/15/23 05:01> Social History Social History: Social History Smoking status: Never smoker Second hand tobacco smoke exposure: No Alcohol intake: never Substance use: never Spiritual care concerns: No <Peri Cherry PA-C - Last Filed: 06/15/23 05:01> Exam Narrative: GENERAL: Well appearing, well-nourished, non-toxic, in no acute distress. HEAD: Normocephalic, atraumatic. NECK: Supple. No adenopathy, no masses. RESPIRATORY: Airway patent, respirations nonlabo
[2023-06-15 04:11] VITALS: BP 102/61; PULSE 79; RESP 15; O2SAT 98
--- NOTE | 2023-06-15 05:47 | PC.NURSE ---
This RN went to discharge pt. Pt reported to this RN that she thought her blood sugar was low. Pt has monitor on phone that constantly reads blood sugar levels pt reported blood sugar to be 40. This RN gave 200mL of orange juice. this RN then took POC glucose. POC read 15. Per verbal order read back from Dr. Puga pt given oral glucose and amp of D50.
[2023-06-15 05:56] LABS: Glucose Point of Care 259 mg/dl (65-105)
[2023-06-15 05:56] LABS: Glucose Point of Care < 20 mg/dl (65-105)
[2023-06-15] MEDS: GLUCOSE ORAL GEL 15 GM OF GLUCSE IN 37.5 GM TUBE (05:56)
[2023-06-15] MEDS: DEXTROSE 50% 25 GM/50 ML SYRINGE (05:57)
[2023-06-15 06:15] VITALS: BP 103/73; PULSE 98; RESP 15; O2SAT 100
== END 2023-06-15 06:27 | disposition home or self-care (01) ==
PROVIDERS: Emergency Provider Emergency Medicine; PCP Nurse Practitioner Family
DX: R10.13 Epigastric pain (principal); E10.9 Type 1 diabetes mellitus without complications; Z96.41 Presence of insulin pump (external) (internal); Z90.81 Acquired absence of spleen; Z90.410 Acquired total absence of pancreas; Z79.4 Long term (current) use of insulin
CPT/HCPCS: 36415; 74177; 80053; 81003; 81025; 82948; 83690; 85025; 96374; 99284; A9270; Q9967

== ENCOUNTER 2023-10-19 14:13 | Emergency (ER) | payer OTHER, SELFPAY ==
[2023-10-19 14:24] VITALS: BP 116/82; PULSE 80; RESP 16; TEMP 36.6; O2SAT 99
--- NOTE | 2023-10-19 14:41 | ED.URI ---
HPI - URI/Sore Throat General Chief Complaint: Upper Respiratory Infection Stated Complaint: SORE THROAT/COUGH Time Seen by Provider: 10/19/23 14:42 History of Present Illness HPI Narrative: 23-year-old female presented for complaint of persistent sinus congestion and drainage, ear pressure, and cough for almost 2 weeks. Denies shortness of breath, wheezing, nausea vomiting, diarrhea, fevers or chills. She was taking [id number] medication but states cough syrup caused her glucometer sensor to quit working. Related Data Home Medications Medication Instructions Recorded Confirmed cholecalciferol (vitamin D3) 1,250 50,000 unit PO WEEKLY 10/03/22 12/12/22 mcg (50,000 unit) capsule insulin lispro 100 unit/mL 100 sliding scale dose subcut 10/03/22 12/12/22 subcutaneous solution USEASDIRECTD [id number] 3 cap PO TIDWMEAL 10/03/22 12/12/22 36,000-114,000-180,000 unit capsule,delay rel (Creon) vitamin A 3,000 mcg (10,000 unit) 10,000 unit PO DAILY 10/03/22 12/12/22 capsule Allergies Allergy/AdvReac Type Severity Reaction Status Date / Time No Known Allergies Allergy Verified 10/19/23 14:17 Review of Systems Review of Systems: CONSTITUTIONAL: Denies body aches, fever, chills, or sweats. EYES: Denies visual changes, redness, or discharge. ENT: Reports rhinorrhea, congestion, otalgia. CARDIOVASCULAR: Denies chest pain, palpitations, or edema. RESPIRATORY: Denies dyspnea. GASTROINTESTINAL: Denies abdominal pain, nausea, vomiting, or diarrhea. SKIN: Denies rash, itching, or wounds. MUSCULOSKELETAL: Denies back pain, joint pain, or myalgia. NEUROLOGIC: Denies headache PMFSH Past Medical History Medical History Diabetes type I Insulin pump in place Surgical History Surgical History History of appendectomy History of pancreatectomy History of splenectomy Family History Family History Other Unknown family medical history Social History Social History Smoking status: Never smoker Second hand tobacco smoke exposure: No Alcohol intake: never Substance use: never Spiritual care concerns: No Exam Narrative: GENERAL: well-appearing, no acute distress. EYES: conjunctivae clear ENT: Mucous membranes moist. TMs pearly quezada with normal light reflex bilaterally; no tragal tenderness. Oropharynx mildly erythematous without lesions. Tonsils enlarged and without exudate. No drooling, no hoarseness, no trismus, uvula midline. No tripod positioning, hot potato voice, or soft palate swelling. NECK: Supple. No lymphadenopathy CHEST: Clear to auscultation, breath sounds equal. No respiratory distress, speaks in full sentences. HEART: Regular rate and rhythm. No murmur heard. SKIN: Warm, dry, no rash. NEURO: Alert and oriented x3. Course Course Emergency Course: Patient is aware of diagnosis, understands and agrees to treatment plan. Anticipatory guidance given. Patient agrees to follow-up as directed and is aware of reasons to seek care at the emergency department. Portions of this record may have been created with voice recognition software Level of Care: Express Care Visit Vital Signs Vital signs: Vital Signs Temperature 98 F 10/19/23 14:24 Pulse Rate 80 10/19/23 14:24 Respiratory Rate 16 10/19/23 14:24 Blood Pressure 116/82 10/19/23 14:24 Pulse Oximetry 99 10/19/23 14:24 Temperature 98 F 10/19/23 14:24 Pulse Rate 80 10/19/23 14:24 Respiratory Rate 16 10/19/23 14:24 Blood Pressure 116/82 10/19/23 14:24 Pulse Oximetry 99 10/19/23 14:24 MDM - URI/Sore Throat MDM Narrative Medical decision making narrative: Discussed physical exam findings. Advise supportive treatments. Patient is appropriate
== END 2023-10-19 14:48 | disposition home or self-care (01) ==
PROVIDERS: Emergency Provider Nurse Practitioner Family; PCP Nurse Practitioner Family
DX: J06.9 Acute upper respiratory infection, unspecified (principal); E10.9 Type 1 diabetes mellitus without complications; Z96.41 Presence of insulin pump (external) (internal)
CPT/HCPCS: 99213; G0463

== ENCOUNTER 2024-03-13 21:58 | Emergency (ER) | payer OTHER, SELFPAY ==
--- NOTE | ~2024-03-13 | XR_ITS ---
EXAMINATION: XR chest 2V Exam Date/Time: 03/13/2024 22:10 CDT HISTORY: heart racing, SOB, LEFT SIDE CHEST PAIN Comparison: 01/06/2023. RESULT: Lines, tubes, and devices: None. Lungs and pleura: Clear. Cardiomediastinal silhouette: Stable. Other: No acute osseous or upper abdominal finding. IMPRESSION: No acute cardiopulmonary process. Reviewed, dictated and finalized at location K.
[2024-03-13 22:05] VITALS: BP 134/89; PULSE 96; RESP 20; TEMP 36.2; O2SAT 100
[2024-03-13 22:38] LABS: Glucose Point of Care 347 mg/dl (65-105)
[2024-03-13 23:26] LABS: Basophils Absolute Auto 0.1 K/mm3 (0.0-0.1); Basophils Percent Auto 0.9 % (0.2-1.2); Eosinophils Absolute Auto 0.1 K/mm3 (0-0.3); Eosinophils Percent Auto 1.2 % (0-4.4); Hematocrit 33.2 % (37.0-47.0); Hemoglobin 9.8 g/dL (12.0-15.0); Immature Granulocyte Absolute 0.02 K/mm3 (0.00-0.031); Immature Granulocyte Percent A 0.2 % (0-0.5); Lymphocytes Absolute Auto 3.51 K/mm3 (0.9-3.2); Lymphocytes Percent Auto 36.9 % (18.3-44.2); Mean Corpuscular HGB Conc 29.5 g/dl (32-36); Mean Corpuscular Hemoglobin 24.2 pg (26-34); Mean Platelet Volume 9.9 fl (7.4-10.4); Monocytes Absolute Auto 1.7 K/mm3 (0.1-0.6); Monocytes Percent Auto 17.9 % (2.6-8.5); Neutrophils Absolute Auto 4.1 K/mm3 (1.3-6.7); Neutrophils Percent Auto 42.9 % (45.5-73.1); Platelet Count Result 594 k/mm3 (150-375); Red Blood Count 4.05 M/mm3 (4.2-5.4); Red Cell Distribution Width 17.2 % (11.5-14.5); White Blood Count 9.5 K/mm3 (4.5-10.0)
[2024-03-13 23:36] LABS: Alanine Aminotransferase 15 U/L (6-35); Albumin Level 3.4 g/dL (3.5-5.1); Alkaline Phosphatase 100 U/L (38-126); Anion Gap 3 mmol/L (4-12); Aspartate Amino Transferase 26 U/L (14-36); Bilirubin,Total 0.4 mg/dL (0.2-1.3); Blood Urea Nitrogen 13 mg/dL (7-17); Calcium 8.1 mg/dL (8.4-10.2); Carbon Dioxide 28 mmol/L (22-30); Chloride 107 mmol/L (98-107); Estimated CRCL calculation 82 ml/min; Estimated Glomerular Filt Rate > 60; Glucose 305 mg/dL (65-110); Lipase 37 U/L (23-300); Potassium 4.2 mmol/L (3.4-5.0); Sodium 138 mmol/L (137-145)
[2024-03-13 23:36] LABS: INR 1.1; Prothrombin Time 14.4 Seconds (11.1-14.7)
[2024-03-13 23:37] LABS: Partial Thromboplastin Time 27.9 Seconds (22.3-36.8)
[2024-03-13 23:49] LABS: Ovalocytes 1+; Platelet Estimate Increased (Adequate)
[2024-03-13 23:50] LABS: Acanthocytes 1+; Hypochromasia 1+; Schistocytes None Seen
[2024-03-13 23:51] LABS: Troponin I < 0.012 ng/mL (0.000-0.034)
--- NOTE | 2024-03-14 00:38 | PC.NURSE ---
Pt walked up to triage desk and verbalized to this RN that she was going to leave. Pt educated on s/s and risks of leaving. Pt states she will go to closest ED if sx persist or worsen. Pt ambulatory out of dept w steady gait.
== END 2024-03-14 00:38 | disposition left against medical advice (07) ==
PROVIDERS: Emergency Provider Emergency Medicine; PCP Nurse Practitioner Family
DX: R06.02 Shortness of breath (principal)
CPT/HCPCS: 36415; 71046; 80053; 81025; 82948; 83690; 84484; 85025; 85610; 85730; 99199

== ENCOUNTER 2024-07-19 13:21 | Emergency (ER) | payer MEDICAID, SELFPAY ==
--- NOTE | ~2024-07-19 | CT_ITS ---
EXAMINATION: CT abdomen pelvis w con DATE: 07/19/2024 18:11 INDICATION: Abdominal pain. TECHNIQUE: Computed tomography (CT) of the abdomen and pelvis was performed with 100 mL Omnipaque 350 intravenous contrast. Automated exposure control and iterative reconstruction technique were employe d. The dose-length product was 677.71 mGy-cm. COMPARISON: CT abdomen and pelvis 06/15/2023 FINDINGS: The visualized portions of the lung bases demonstrate mild atelectasis. No pleural effusion . The heart size is normal. No pericardial effusion. There is pneumobilia in left hepatic lobe. The s pleen and at least the majority of the pancreas are absent. The adrenal glands are normal. There are cysts in the kidneys measuring up to 7 mm. There is a 3.7 cm mass in left ovary with attenuation of 2 3 HU, likely a hemorrhagic cyst. There are surgical changes in the stomach. There are no dilated loop s of bowel. There are changes of appendectomy. There are no pathologically enlarged lymph nodes. Ther e is no free intraperitoneal fluid. There is a benign bone island in left ilium. There is mild thorac ic spondylosis. There are chronic bilateral L5 pars defects. IMPRESSION: 1. New 3.7 cm hemorrhagic cyst in left ovary. Reviewed, dictated and finalized at location A.
[2024-07-19 13:25] VITALS: BP 151/98; PULSE 98; RESP 16; TEMP 36.4; O2SAT 99
[2024-07-19] MEDS: ONDANSETRON INJ 4 MG/2 ML VIAL IV PUSH (17:17)
[2024-07-19] MEDS: SODIUM CHLORIDE 0.9% IV 1,000 ML 999 ML IV CONT (17:17)
[2024-07-19] MEDS: PANTOPRAZOLE SODIUM IV 40 MG VIAL IV PUSH (17:17)
[2024-07-19 17:20] VITALS: BP 116/79; PULSE 75; RESP 18; O2SAT 99
[2024-07-19 17:24] LABS: BEDSIDEPREGUCG Negative (Negative)
[2024-07-19 17:27] LABS: Basophils Absolute Auto 0.1 K/mm3 (0.0-0.1); Basophils Percent Auto 0.9 % (0.2-1.2); Eosinophils Absolute Auto 0.1 K/mm3 (0-0.3); Hematocrit 37.4 % (37.0-47.0); Hemoglobin 10.8 g/dL (12.0-15.0); Immature Granulocyte Absolute 0.02 K/mm3 (0.00-0.031); Immature Granulocyte Percent A 0.2 % (0-0.5); Lymphocytes Absolute Auto 4.85 K/mm3 (0.9-3.2); Lymphocytes Percent Auto 46.3 % (18.3-44.2); Mean Corpuscular HGB Conc 28.9 g/dl (32-36); Mean Corpuscular Hemoglobin 22.6 pg (26-34); Mean Corpuscular Volume 78.4 fl (80-100); Mean Platelet Volume 10.2 fl (7.4-10.4); Monocytes Absolute Auto 1.3 K/mm3 (0.1-0.6); Monocytes Percent Auto 12.8 % (2.6-8.5); Neutrophils Absolute Auto 4.1 K/mm3 (1.3-6.7); Neutrophils Percent Auto 38.8 % (45.5-73.1); Platelet Count Result 632 k/mm3 (150-375); Red Blood Count 4.77 M/mm3 (4.2-5.4); Red Cell Distribution Width 17.3 % (11.5-14.5); White Blood Count 10.5 K/mm3 (4.5-10.0)
--- NOTE | 2024-07-19 17:33 | ED.GENADULT ---
HPI - General Adult General Chief complaint: Abdominal Pain Stated complaint: abd pain Time Seen by Provider: 07/19/24 16:41 History of Present Illness HPI narrative: A 4-year-old female who presents emergency department chief complaint of abdominal pain. 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 the patient states that for about 4 days she has been having upper abdominal pain feels similar to whenever she has had pancreatitis patient states that she has had some nausea also vomiting but denies diarrhea patient denies fever Related Data Home Medications Medication Instructions Recorded Confirmed cholecalciferol (vitamin D3) 1,250 50,000 unit PO WEEKLY 10/03/22 12/12/22 mcg (50,000 unit) capsule insulin lispro 100 unit/mL 100 sliding scale dose subcut 10/03/22 12/12/22 subcutaneous solution USEASDIRECTD [id number]-[id number] 3 cap PO TIDWMEAL 10/03/22 12/12/22 36,000-114,000-180,000 unit capsule,delay rel (Creon) vitamin A 3,000 mcg (10,000 unit) 10,000 unit PO DAILY 10/03/22 12/12/22 capsule Allergies Allergy/AdvReac Type Severity Reaction Status Date / Time No Known Allergies Allergy Verified 07/19/24 16:47 Review of Systems Review of Systems: A 10 system review of systems was completed on the patient and is negative except for what is stated in the HPI. Nursing and ancillary documentation was reviewed. PMFSH Past Medical History Medical History Diabetes type I Insulin pump in place Surgical History Surgical History History of appendectomy History of pancreatectomy History of splenectomy Family History Family History Other Unknown family medical history Social History Social History Smoking status: Never smoker Second hand tobacco smoke exposure: No Alcohol intake: never Substance use: never Spiritual care concerns: No Exam Narrative: GENERAL: Well-appearing, well-nourished, and in no acute distress. HEAD: Normocephalic, atraumatic. EYES: PERRLA and EOMI. ENT: Nares clear, no rhinorrhea or epistaxis. Mucous membranes moist. NECK: Supple. CHEST: Clear to auscultation. No respiratory distress. HEART: Regular rate and rhythm. No murmur heard. Normal peripheral pulses. ABDOMEN: Soft, nontender, nondistended, normal active bowel sounds. EXTREMITIES: Normal range of motion. No edema. SKIN: Warm, dry, no rash. NEURO: No focal deficits. Alert and oriented x3. PSYCH: Normal mood and affect. Course Vital Signs Vital signs: Vital Signs Temperature 36.4 C 07/19/24 13:25 Pulse Rate 98 07/19/24 13:25 Respiratory Rate 16 07/19/24 13:25 Blood Pressure 151/98 H 07/19/24 13:25 Pulse Oximetry 99 07/19/24 13:25 Oxygen Delivery Room Air 07/19/24 13:25 Temperature 36.7 C 07/19/24 19:04 Pulse Rate 83 07/19/24 19:04 Respiratory Rate 16 07/19/24 19:04 Blood Pressure 134/92 H 07/19/24 19:04 Pulse Oximetry 100 07/19/24 19:04 Oxygen Delivery Room Air 07/19/24 13:25 Medical Decision Making MDM Narrative Medical decision making narrative: Differential diagnosis includes intra-abdominal infection, gastritis, diverticulitis, colitis, appendicitis, UTI, pyelonephritis Laboratory studies were obtained on the patient white count of 10.5 electrolytes within normal limits urinalysis showed 11-20 white blood cells in the urine CT scan of the abdomen pelvis showed New 3.7 cm hemorrhagic cyst in left ovary. Vital Signs Vital Signs: Vital Signs Temperature 36.4 C 07/19/24 13:25 Pulse Rate 98 07/19/24 13:25 Respiratory Rate 16 07/19/24 13:25 Blood Pressure 151/98 H 07/19/24 13:25 Pulse Oximetry 99 07/19/24 13:25 Oxygen Delivery Room
[2024-07-19 17:37] LABS: Alanine Aminotransferase 15 U/L (6-35); Albumin Level 4.3 g/dL (3.5-5.1); Alkaline Phosphatase 127 U/L (38-126); Anion Gap 9 mmol/L (4-12); Aspartate Amino Transferase 31 U/L (14-36); Bilirubin,Total 0.4 mg/dL (0.2-1.3); Blood Urea Nitrogen 14 mg/dL (7-17); Calcium 8.8 mg/dL (8.4-10.2); Carbon Dioxide 25 mmol/L (22-30); Chloride 100 mmol/L (98-107); Estimated CRCL calculation 132 ml/min; Estimated Glomerular Filt Rate > 60; Glucose 201 mg/dL (65-110); Lipase 22 U/L (23-300); Potassium 3.8 mmol/L (3.4-5.0); Sodium 134 mmol/L (137-145)
[2024-07-19 17:38] LABS: Platelet Estimate Increased (Adequate)
[2024-07-19 17:39] LABS: Hypochromasia 1+
[2024-07-19 17:40] LABS: Acanthocytes 1+; Poikilocytosis 1+; Target Cells 1+
[2024-07-19 17:41] LABS: Ovalocytes 1+
[2024-07-19 17:43] LABS: Schistocytes Rare
[2024-07-19 17:45] LABS: Appearance Urine Cloudy (Clear); Bilirubin Urine Negative (Negative); Blood Urine Negative (Negative); Color Urine Yellow (Yellow); Glucose Urine UA Negative (Negative); Ketones Urine Trace mg/dL (Negative); Nitrate Urine Negative (Negative); Protein Urine Negative (Negative); Specific Grav Ur 1.025 (1.001-1.035)
[2024-07-19 17:46] LABS: Add Urine Microscopic? YES; Bacteria Urine 1+ /hpf; Leukocyte Esterase Ur 2+ LEU/UL (Negative); Need Manual Microscopic Reviewed; Non Pathogenic Casts 0-2; Squamous Epithelial Cell Urine Moderate /hpf (Few)
[2024-07-19 19:04] VITALS: BP 134/92; PULSE 83; RESP 16; TEMP 36.7; O2SAT 100
== END 2024-07-19 19:25 | disposition home or self-care (01) ==
PROVIDERS: Emergency Provider Emergency Medicine; PCP Nurse Practitioner Family
DX: N39.0 Urinary tract infection, site not specified (principal); N83.202 Unspecified ovarian cyst, left side; E11.9 Type 2 diabetes mellitus without complications; Z96.41 Presence of insulin pump (external) (internal); Z90.410 Acquired total absence of pancreas; Z90.81 Acquired absence of spleen; Z79.4 Long term (current) use of insulin; Z79.899 Other long term (current) drug therapy
CPT/HCPCS: 36415; 74177; 80053; 81001; 81025; 83690; 85025; 87086; 96361; 96374; 96375; 99284; J2405; J2470; J7030; Q9967

== ENCOUNTER 2025-04-13 10:29 | Emergency (ER) | payer OTHER, SELFPAY ==
[2025-04-13 10:47] VITALS: BP 125/87; PULSE 87; RESP 16; TEMP 36.6; O2SAT 99
--- NOTE | 2025-04-13 15:25 | ED.SKABFB ---
HPI - Skin/Abscess/Foreign Bdy General Chief complaint: Skin/Abscess/Foreign Body Stated complaint: BURN TO R FOREARM Time Seen by Provider: 04/13/25 11:20 Source: patient and RN notes reviewed Mode of arrival: ambulatory Limitations: no limitations History of Present Illness HPI narrative: 25-year-old female presents Express Care complaining of burn to her right forearm proximally 4 days ago. Patient was at work at [employer] when her form accidentally touched the surface of the grill causing a burn. Patient reports originally had a blister but the blisters popped. Patient has been keeping it covered and washing the wound daily. Patient states that the redness appears to be getting worse and it is still painful. Patient denies any fevers, body aches, chills, numbness, tingling, or any other injuries. Related Data Home Medications ?Medication ?Instructions ?Recorded ?Confirmed ?Last Taken ?Type cholecalciferol (vitamin D3) 1,250 50,000 unit PO WEEKLY 10/03/22 12/12/22 Unknown History mcg (50,000 unit) capsule insulin lispro 100 unit/mL 100 sliding scale dose subcut 10/03/22 12/12/22 Unknown History subcutaneous solution USEASDIRECTD [id number] 3 cap PO TIDWMEAL 10/03/22 12/12/22 Unknown History 36,000-114,000-180,000 unit capsule,delay rel (Creon) metoprolol succinate 25 mg mg PO 04/13/25 Unknown History tablet,extended release 24 hr metoprolol succinate 50 mg mg PO 04/13/25 Unknown History tablet,extended release 24 hr sumatriptan succinate 50 mg tablet mg PO 04/13/25 Unknown History ubrogepant 100 mg tablet (Ubrelvy) mg 04/13/25 Unknown History Allergies Allergy/AdvReac Type Severity Reaction Status Date / Time No Known Allergies Allergy Verified 04/13/25 10:50 Review of Systems Review of Systems: CONSTITUTIONAL: Denies fever, chills, or sweats. EYES: Denies visual changes, redness, or discharge. ENT: Denies rhinorrhea, congestion, sore throat, or otalgia. CARDIOVASCULAR: Denies chest pain, palpitations, or edema. RESPIRATORY: Denies cough or dyspnea. GASTROINTESTINAL: Denies abdominal pain, nausea, vomiting, or diarrhea. GENITOURINARY: Denies dysuria or hematuria. SKIN: Denies rash or itching. Positive for burn. MUSCULOSKELETAL: Denies back pain, joint pain, or myalgia. NEUROLOGIC: Denies headache, numbness, or weakness. PSYCHIATRIC: Denies anxiety or depression. All other systems reviewed are negative, except as documented in HPI. [facility] Past Medical History Medical History Insulin pump in place Diabetes type I Surgical History Surgical History History of appendectomy History of splenectomy History of pancreatectomy Family History Family History Other Unknown family medical history Social History Social History Smoking status: Never smoker Second hand tobacco smoke exposure: No Alcohol intake: never Substance use: never Spiritual care concerns: No Comments At the time of my signature, I reviewed and agree with the nursing past medical, surgical, social, and family history. There is no relevant family history pertinent to the patient complaint. Exam Narrative: GENERAL: This is a well-nourished, well-developed adult, in no apparent distress. They are non ill-appearing, nontoxic appearing. HEAD: normocephalic, atraumatic. EYES: Sclera clear/white. Conjunctiva normal. Vision is grossly intact. Extraocular movements intact EARS: External ears normal. Hearing grossly intact. NOSE: External nose normal THROAT: Mucous membranes moist, NECK: Neck supple, CARDIOVASCULAR: Regular rate and rhythm RESPIRATORY: Respiratory rate normal, respiratory effort nonlabored, no respiratory distress SKIN: Right forearm: Area of erythema and blistering to the mid anterior surface of forearm. Burn appears to be a partial-thickness burn. No necrosis. No exudate. Tenderness to palpation. No area of fluctuance or induration. Burn area measuring approximately 1.5 cm x 2 cm. TBSA approximately less than 1% NEURO: awake, alert, and oriented to person, place and time. There were no obvious focal neurologic abnormalities. EXTREMITIES: No joint tenderness, effusion, or edema noted. Course Course Emergency Course: Portions of this record may have been created with voice recognition software Level of Care: Express Care Visit Vital Signs Vital signs: Vital Signs Temperature 97.9 F 04/13/25 10:47 Pulse Rate 87 04/13/25 10:47 Respiratory Rate 16 04/13/25 10:47 Blood Pressure 125/87 04/13/25 10:47 Pulse Oximetry 99 04/13/25 10:47 Temperature 97.9 F 04/13/25 10:47 Pulse Rate 87 04/13/25 10:47 Respiratory Rate 16 04/13/25 10:47 Blood Pressure 125/87 04/13/25 10:47 Pulse Oximetry 99 04/13/25 10:47 Reviewed MDM - Skin/Abscess/Foreign Bdy MDM Narrative Medical decision making narrative: Patient has small partial-thickness wound to right forearm. No significant crane. TBSA less than 1%. Given persistent symptoms the patient reporting increasing erythema, will go ahead and prophylactically treat with cephalexin. Also prescribe Silvadene cream. Discussed physical exam findings. Advised supportive measures and signs/symptoms to go to the ER. Pt is appropriate for outpt treatment and f/u. Differential Diagnosis Differential diagnosis: Likely cellulitis, contact dermatitis and other (Partial-thickness burn, superficial burn, full-thickness burn) Critical Care Time Critical Care Time Critical Care Time: No Discharge Plan Discharge Clinical Impression: Burn Patient Disposition: Home Condition: Stable Instructions: Second-Degree Burn (ED) Additional Instructions: Wash the wound daily with mild soap and water. Please keep the wound dry and covered until it is healed. Take cephalexin as directed. Apply the Silvadene cream as directed. For dirty water to the wound is healed. Follow-up with PCP in 3-5 days. If your symptoms worsen, you developed worsening redness, swelling, pain, fevers, green yellow discharge, red streaking, or any other concerns please go to the ER immediately. Patient Language: Estonian Prescriptions: New silver sulfadiazine [Silvadene] 1 % cream 1 applic topical BID 7 Days Qty: 25 0RF Rx Instructions: apply a 1.5 mm thickness cephalexin 500 mg capsule 500 mg PO Q6H 7 Days Qty: 28 0RF No Action insulin lispro 100 unit/mL solution 100 sliding scale dose subcut USEASDIRECTD cholecalciferol (vitamin D3) 1,250 mcg (50,000 unit) capsule 50,000 unit PO WEEKLY Creon 36,000-114,000- 180,000 unit capsule,delayed release(DR/EC) 3 cap PO TIDWMEAL metoprolol succinate 50 mg tablet extended release 24 hr PO sumatriptan succinate 50 mg tablet PO metoprolol succinate 25 mg tablet extended release 24 hr PO Ubrelvy 100 mg tablet ondansetron 4 mg tablet,disintegrating 4 mg PO Q8H PRN (Reason: nausea and vomiting) Qty: 10 0RF ondansetron 4 mg tablet,disintegrating 4 mg PO Q8H PRN (Reason: nausea and vomiting) Qty: 10 0RF Follow-up/Referrals: Conrad,Rufina Metzger APRN [Primary Care Provider] - Stand Alone Forms: Work/School Release IP Time of Disposition: 11:19
== END 2025-04-13 11:25 | disposition home or self-care (01) ==
PROVIDERS: PCP Nurse Practitioner Family
DX: T22.211A Burn of second degree of right forearm, initial encounter (principal); T31.0 Burns involving less than 10% of body surface; X15.0XXA Contact with hot stove (kitchen), initial encounter; Y99.0 Civilian activity done for income or pay; E10.9 Type 1 diabetes mellitus without complications; Z79.899 Other long term (current) drug therapy
CPT/HCPCS: 99213; G0463